=== PATIENT | male | born 1945 | race African-American/Black ===

== ENCOUNTER → 2018-08-29 | Day surgery (SDC) | payer MEDICARE ==
[2018-08-27 14:13] LABS: BASOPHILS % 0.8 % (0.0-1.0); EOSINOPHILS # (AUTO) 0.1 (0.0-0.4); EOSINOPHILS % 3.1 % (0.0-6.0); HEMATOCRIT 40.3 % (38.2-49.6); LYMPHOCYTES # (AUTO) 0.7 (1.0-3.2); MEAN CORPUSCULAR HEMOGLOBIN 28.3 pg (28-32); MEAN CORPUSCULAR HGB CONC 32.3 g/dL (31-35); MEAN CORPUSCULAR VOLUME 87.8 fL (81-99); MONOCYTES # (AUTO) 0.9 (0.2-0.8); MONOCYTES % 23.6 % (4.4-11.3); NEUTROPHILS # (AUTO) 2.1 (2.1-6.9); PLATELET COUNT 160 x10e3/uL (140-360); RED BLOOD COUNT 4.59 x10e6/uL (4.3-5.7); RED CELL DISTRIBUTION WIDTH 17.2 % (11.7-14.4)
[~2018-08-29] MED LIST: ALBUTEROL0.63 MG/3 INH; AMIODARONE HCL200 MG PO; ATORVASTATIN CA40 MG PO; CARVEDILOL3.125 MG PO; CEFAZOLIN SOD 1 GM/NS 50ML 100 ML IV ONE; FENTANYL CITRATE/PF 100MCG/2 ML INJ ONE; FUROSEMIDE40 MG PO; GABAPENTIN300 MG PO; HUMALOG100 UNIT/1 SQ; LANTUS SQ; METOCLOPRAMIDE HCL 10 MG/2ML VIAL ONE; MIDAZOLAM HCL 2 MG/2 ML VIAL ONE; PANTOPRAZOLE SO40 MG PO; POTASSIUM CHLO10 ME1 PO; PROPANTHELINE B15 MG PO; PROPOFOL IV EMULSION 10 MG/ML 50 ML VIAL ONE; SPIRONOLACTONE25 MG PO; VENTOLIN HFA18 GM INH
--- OUTSIDE RECORDS SUMMARY | 2018-08-29 09:06 | XMS REPORT | Clinical Summary ---
Author Author [facility] Organization [facility] Address Unknown Phone Unavailable Care Team Providers Care Clerical Grader Name Role Phone Agnieszka Logan MD PCP Allergies No Known Allergies Medications End Date Status Medication Sig Dispensed Refills Start Date Active amIODarone (PACERONE) 200 Take 400 mg 0 MG tablet by mouth daily. Active aspirin (ECOTRIN) 81 MG Take 81 mg by 0 enteric coated tablet mouth daily. Active atorvastatin (LIPITOR) 40 Take 40 mg by 0 MG tablet mouth daily. Active carvedilol (COREG) 12.5 Take 12.5 mg 0 MG tablet by mouth 2 (two) times a day with meals. Active furosemide (LASIX) 40 mg Take 40 mg by 0 tablet mouth 2 (two) times a day. Active gabapentin (NEURONTIN) Take 600 mg 0 600 mg tablet by mouth 3 (three) times a day. Active albuterol (ACCUNEB) 2.5 Take 2.5 mg 0 mg /3 mL (0.083 %) by nebulizer solution nebulization every 6 (six) hours as needed for wheezing. Active insulin regular, human Inject 20 0 (HUMULIN R REGULAR U-100 Units as INSULN INJ) directed 3 (three) times a day with meals. Active lisinopril Take 5 mg by 0 (PRINIVIL,ZESTRIL) 5 mg mouth daily. tablet Active magnesium hydroxide (MILK Take 30 mL by 0 OF MAGNESIA ORAL) mouth daily as needed. Active polyethylene glycol Take 17 g by 0 (MIRALAX) 17 gram packet mouth daily. Active potassium chloride Take 10 mEq 0 (K-DUR,KLOR-CON) 10 MEQ by mouth CR tablet daily. Active umeclidinium-vilanterol Inhale 1 puff 0 (ANORO ELLIPTA) 62.5-25 daily. mcg/actuation blister with device Active insulin NPH (HumuLIN-N) Inject 40 0 100 unit/mL injection Units under the skin. Sliding scale Active Problems Not on file Encounters Care Team Description Date Type Specialty Higinio Majano MD Near syncope (Primary Dx); Hypotension, unspecified hypotension type 10/01/2017 Emergency Emergency Medicine after 08/28/2017 Social History Date Tobacco Use Types Packs/Day Years Used Former Smoker Smokeless Tobacco: Never Used Alcohol Use Drinks/Week oz/Week Comments No Sex Assigned at Date Recorded Not on file Industry Job Start Date Occupation Not on file Not on file Not on file Travel End Travel History Travel Start No recent travel history available. Last Filed Vital Signs Time Taken Vital Sign Reading 10/01/2017 4:42 PM CDT Blood Pressure 158/74 10/01/2017 4:42 PM CDT Pulse 64 10/01/2017 4:42 PM CDT Temperature 36.7 C (98 F) 10/01/2017 4:42 PM CDT Respiratory Rate 21 - Oxygen Saturation - - Inhaled Oxygen - Concentration 10/01/2017 1:52 PM CDT Weight 78.9 kg (174 lb) 10/01/2017 1:52 PM CDT Height 172.7 cm (5' 8") 10/01/2017 1:52 PM CDT Body Mass Index 26.46 Plan of Treatment Health Maintenance Due Date Last Done Comments COLON CANCER SCREENING 10/27/1997 SHINGLES VACCINES (#1) 10/27/1997 65+ PNEUMOCOCCAL VACCINE 10/27/2012 (1 of 2 - PCV13) PNEUMOCOCCAL 10/27/2012 POLYSACCHARIDE VACCINE AGE 65 AND OVER INFLUENZA VACCINE 01/17/2018 Procedures Comments Procedure Name Priority Date/Time Associated Diagnosis URINALYSIS SCREEN AND Routine 10/01/2017 MICROSCOPY, WITH REFLEX 3:03 PM CDT TO CULTURE URINE CULTURE Routine 10/01/2017 3:00 PM CDT XR CHEST 1 VW PORTABLE STAT 10/01/2017 2:57 PM CDT ZZESTIMATED GFR STAT 10/01/2017 2:15 PM CDT B NATRIURETIC PEPTIDE STAT 10/01/2017 2:15 PM CDT TROPONIN STAT 10/01/2017 2:15 PM CDT CREATINE KINASE, TOTAL STAT 10/01/2017 (CPK) 2:15 PM CDT BASIC METABOLIC PANEL STAT 10/01/2017 2:15 PM CDT HC COMPLETE BLD COUNT STAT 10/01/2017 W/AUTO DIFF 2:15 PM CDT ECG 12-LEAD STAT 10/01/2017 1:58 PM CDT ECG ED PRELIMINARY Routine 10/01/2017 INTERPRETATION 1:45 PM CDT after 08/28/2017 Results * Urinalysis screen and microscopy, with reflex to culture (10/01/2017 3:03 PM CDT) Specimen site Clean catch [facility] DEPARTMENT OF PATHOLOGY AND GENOMIC MEDICINE Color, UA Yellow [facility] DEPARTMENT OF PATHOLOGY AND GENOMIC MEDICINE Appearance, UA Clear [facility] DEPARTMENT OF PATHOLOGY AND GENOMIC MEDICINE Specific gravity, UA 1.010 1.001 - 1.035 [facility] DEPARTMENT OF PATHOLOGY AND GENOMIC MEDICINE pH, UA 6.0 5.0 - 8.5 [facility] DEPARTMENT OF PATHOLOGY AND GENOMIC MEDICINE Protein, UA Negative Negative [facility] DEPARTMENT OF PATHOLOGY AND GENOMIC MEDICINE Glucose, UA 2+ (A) Negative [facility] DEPARTMENT OF PATHOLOGY AND GENOMIC MEDICINE Ketones, UA Negative Negative [facility] DEPARTMENT OF PATHOLOGY AND GENOMIC MEDICINE Bilirubin, UA Negative Negative [facility] DEPARTMENT OF PATHOLOGY AND GENOMIC MEDICINE Blood, UA Negative Negative [facility] DEPARTMENT OF PATHOLOGY AND GENOMIC MEDICINE Nitrite, UA Negative Negative [facility] DEPARTMENT OF PATHOLOGY AND GENOMIC MEDICINE Urobilinogen, UA 4.0 (A) <2.0 [facility] DEPARTMENT OF PATHOLOGY AND GENOMIC MEDICINE Leukocyte esterase, UA Negative Negative [facility] DEPARTMENT OF PATHOLOGY AND GENOMIC MEDICINE WBC, UA <1 0 - 1 /HPF [facility] DEPARTMENT OF PATHOLOGY AND GENOMIC MEDICINE RBC, UA 1 0 - 5 /HPF [facility] DEPARTMENT OF PATHOLOGY AND GENOMIC MEDICINE Bacteria, UA None seen None seen [facility] DEPARTMENT OF PATHOLOGY AND GENOMIC MEDICINE Yeast, UA None seen [facility] DEPARTMENT OF PATHOLOGY AND GENOMIC MEDICINE Yeast with pseudohyphae, None seen [facility] DEPARTMENT [facility] PATHOLOGY AND GENOMIC MEDICINE Specimen Urine Performing Organization Address City/State/Zipcode Phone Number [place] [phone] [place] [address] PATHOLOGY AND GENOMIC MEDICINE * Urine culture (10/01/2017 3:00 PM CDT) Urine culture SEE COMMENTComment: [facility] DEPARTMENT OF Bacteriuria screen negative. PATHOLOGY AND GENOMIC MEDICINE Performing Organization Address City/State/Zipcode Phone Number [facility] DEPARTMENT OF [address] [place] [address] PATHOLOGY AND GENOMIC MEDICINE * XR Chest 1 Vw Portable (10/01/2017 2:57 PM CDT) Narrative Performed At [facility]:SHORTNESS OF BREATH COMPARISON:None available IMPRESSION: The heart is mildly enlarged with left-sided dual-lead ICD, leads extending to overlie the right atrium and right ventricle. Urinary vascularity is normal and the lungs appear clear. There is no pneumothorax or effusion. Bones are intact. Minimal atherosclerosis of the aortic knob noted. Thank you for allowing us to participate in the care of your patient. [facility]-[id number] Procedure Note Hm Interface, Radiology Results Incoming - 10/01/2017 3:03 PM CDT XR CHEST 1 VW PORTABLE CLINICAL INDICATION: SHORTNESS OF BREATH COMPARISON: None available IMPRESSION: The heart is mildly enlarged with left-sided dual-lead ICD, leads extending to overlie the right atrium and right ventricle. Urinary vascularity is normal and the lungs appear clear. There is no pneumothorax or effusion. Bones are intact. Minimal atherosclerosis of the aortic knob noted. Thank you for allowing us to participate in the care of your patient. [facility]-[id number] Performing Organization Address City/[facility]/Zipcode Phone Number [facility] [address] [place] [address] * Estimated GFR (10/01/2017 2:15 PM CDT) GFR Non Af Amer 46 (A) mL/min/1.73 m2 [facility] DEPARTMENT OF PATHOLOGY AND GENOMIC MEDICINE GFR Af Amer 56 (A) mL/min/1.73 m2 [facility] DEPARTMENT OF Comment: PATHOLOGY AND Chronic kidney disease: <60 GENOMIC MEDICINE mL/min/1.73m2 Kidney failure: <15 mL/min/1.73m2 The estimated GFR is calculated from the IDMS-traceable Modification of Diet in Renal Disease Equation. The accuracy of the calculation is poor when the creatinine is normal. Calculated values >90 mL/min/1.73m2 are not reported. This equation has not been validated in children (<18 years), women, the elderly (>70 years), or ethnic groups other than Caucasians and Americans. Specimen Plasma specimen Performing Organization Address City/State/Zipcode Phone Number [place] [phone] PATHOLOGY AND [employer] MEDICINE * Troponin (10/01/2017 2:15 PM CDT) Troponin 0.21 0.00 - 0.60 ng/mL [facility] DEPARTMENT OF Comment: PATHOLOGY AND 0.11 - 1.49 GENOMIC MEDICINE ng/mlMay indicate increased risk of acute coronary syndrome. >=1.5 ng/ml Consistent with acute myocardial infarction. The diagnostic value of a single normal or non-diagnostic result is questionable.Serial samples at 2-6 hour intervals are required to rule out acute myocardial injury. Specimen Plasma specimen Performing Organization Address City/[facility] Phone Number [place] [phone] PATHOLOGY AND [employer] MEDICINE * CBC with platelet and differential (10/01/2017 2:15 PM CDT) WBC 6.6 4.2 - 11.0 k/uL [facility] DEPARTMENT OF PATHOLOGY AND GENOMIC MEDICINE RBC 3.84 (L) 4.04 - 5.86 m/uL [facility] DEPARTMENT OF PATHOLOGY AND GENOMIC MEDICINE HGB 10.5 (L) 13.0 - 17.3 g/dL [facility] DEPARTMENT PATHOLOGY AND GENOMIC MEDICINE HCT 32.7 (L) 34.0 - 45.0 % [facility] DEPARTMENT OF PATHOLOGY AND GENOMIC MEDICINE MCV 85.2 80.0 - 98.0 fL [facility] DEPARTMENT OF PATHOLOGY AND GENOMIC MEDICINE MCH 27.3 27.0 - 34.0 pg [facility] DEPARTMENT OF PATHOLOGY AND GENOMIC MEDICINE MCHC 32.1 31.5 - 36.5 g/dL [facility] DEPARTMENT OF PATHOLOGY AND GENOMIC MEDICINE RDW - SD 55.6 (H) 37.0 - 51.0 fL [facility] DEPARTMENT OF PATHOLOGY AND GENOMIC MEDICINE MPV 12.0 (H) 7.4 - 10.4 fL [facility] DEPARTMENT OF PATHOLOGY AND GENOMIC MEDICINE Platelet count 205 150 - 400 k/uL [facility] DEPARTMENT OF PATHOLOGY AND GENOMIC MEDICINE Nucleated RBC 0.00 /100 WBC [facility] DEPARTMENT OF PATHOLOGY AND GENOMIC MEDICINE Neutrophils 78.6 (H) 36.0 - 66.0 % [facility] DEPARTMENT OF PATHOLOGY AND GENOMIC MEDICINE Lymphocytes 8.2 (L) 24.0 - 44.0 % [facility] DEPARTMENT OF PATHOLOGY AND GENOMIC MEDICINE Monocytes 11.0 (H) 0.0 - 6.0 % [facility] DEPARTMENT OF PATHOLOGY AND GENOMIC MEDICINE Eosinophils 1.4 0.0 - 6.0 % [facility] DEPARTMENT OF PATHOLOGY AND GENOMIC MEDICINE Basophils 0.3 0.0 - 1.2 % [facility] DEPARTMENT OF PATHOLOGY AND GENOMIC MEDICINE Immature granulocytes 0.5 0.0 - 1.0 % [facility] DEPARTMENT OF PATHOLOGY AND GENOMIC MEDICINE Specimen Blood Performing Organization Address City/[facility] Medical [place] [address] PATHOLOGY AND GENOMIC MEDICINE * B natriuretic peptide (10/01/2017 2:15 PM CDT) BNP 798 (H) 0 - 100 pg/mL [facility] DEPARTMENT OF PATHOLOGY AND GENOMIC MEDICINE Specimen Blood Performing Organization Address City/[facility] [place] [address] PATHOLOGY AND GENOMIC MEDICINE * Creatine kinase, total (CPK) (10/01/2017 2:15 PM CDT) Creatine kinase 53 (L) 61 - 224 U/L [facility] DEPARTMENT OF PATHOLOGY AND GENOMIC MEDICINE Specimen Plasma specimen Performing Organization Address City/[facility] [place] [address] PATHOLOGY AND GENOMIC [facility] * Basic metabolic panel (10/01/2017 2:15 PM CDT) Sodium 139 135 - 150 mEq/L [facility] DEPARTMENT OF PATHOLOGY AND GENOMIC MEDICINE Potassium 4.4 3.5 - 5.0 mEq/L [facility] DEPARTMENT OF PATHOLOGY AND GENOMIC MEDICINE Chloride 100 100 - 109 mEq/L [facility] DEPARTMENT OF PATHOLOGY AND GENOMIC MEDICINE CO2 33 (H) 24 - 32 mmol/L [facility] DEPARTMENT OF PATHOLOGY AND GENOMIC MEDICINE Anion gap 6 (L) 7 - 15 mEq/L [facility] DEPARTMENT OF Comment: PATHOLOGY AND Starting from [facility] , anion gap calculation no longer incorporates potassium. Please note the change. BUN 41 (H) 7 - 18 mg/dL [facility] DEPARTMENT OF PATHOLOGY AND GENOMIC MEDICINE Creatinine 1.5 0.8 - 1.5 mg/dL [facility] DEPARTMENT OF PATHOLOGY AND GENOMIC MEDICINE Glucose 205 (H) 65 - 100 mg/dL [facility] DEPARTMENT OF PATHOLOGY AND GENOMIC MEDICINE Calcium 9.2 8.6 - 10.7 mg/dL [facility] DEPARTMENT OF PATHOLOGY AND GENOMIC MEDICINE Specimen Plasma specimen Performing Organization Address City/[facility] Centercoor Phone Number [facility] DEPARTMENT OF [address] [place] [address] PATHOLOGY AND GENOMIC MEDICINE * ECG 12 lead (10/01/2017 1:58 PM CDT) Ventricular rate 66 [facility] Atrial rate 66 [facility] TX interval 200 [facility] QRSD interval 104 [facility] QT interval 464 [facility] QTC interval 486 [facility] P axis 1 13 [facility] QRS axis 1 62 [facility] T wave axis 6 [facility] EKG impression Normal sinus rhythm-ST & T [facility] wave abnormality, consider lateral ischemia-Prolonged QT-Abnormal ECG-No previous ECGs available- Performing Organization Address [facility] Centerc[facility] Phone Number [facility] [address] [place] [address] * ECG ED Preliminary Interpretation - NOT AN ORDER (10/01/2017 1:45 PM CDT) Narrative Performed At Higinio Majano MD 10/01/20174:41 PM ECG ED Preliminary Interpretation - Not an Order Performed by: HIGINIO MAJANO Authorized by: HIGINIO MAJANO ECG reviewed by ED Physician in the absence of a relationship executive: yes Interpretation: Interpretation: abnormal Rate: ECG rate:66 ECG rate assessment: normal Rhythm: Rhythm: sinus rhythm Ectopy: Ectopy: none QRS: QRS axis:Normal QRS intervals:Normal Conduction: Conduction: normal ST segments: ST segments:Normal T waves: T waves: flattening and inverted Flattening:II, III and aVF Inverted:V5 and V6 after 08/28/2017 Insurance Payer Benefit Subscriber ID Type Phone Address Plan / Group MEDICARE MEDICARE xxxxxxxxxx Medicare [place], [place] PART A AND B [employer] MEDICARE HU[employer]NA xxxxxxxxx PPO MEDICARE PPO/PFFS/E [facility] Advance Directives Patient has advance care planning documents on file. For more information, ethan logan contact: Rigo Sims [address] [place] [address]
--- OUTSIDE RECORDS SUMMARY | 2018-08-29 09:07 | XMS REPORT | Summary of Care ---
Author Author [facility] Organization [facility] Address Unknown Phone Unavailable Encounter BERENICE Kilgore(KENYON) [id number] Date(s): 08/07/17 - 08/10/17 [facility] [address] [place] [address]- [phone] Encounter Diagnosis Breakdown (mechanical) of cardiac pulse generator (battery), initial encounter (Final) - 08/23/17 Ventricular tachycardia (Final) - Acute kidney failure, unspecified (Final) - Hypertensive heart and chronic kidney disease with heart failure and stage 1 thr ough stage 4 chronic kidney disease, or unspecified chronic kidney disease (Final) - Chronic systolic (congestive) heart failure (Final) - Dilated cardiomyopathy (Final) - Type 2 diabetes mellitus with diabetic chronic kidney disease (Final) - Chronic kidney disease, stage 3 (moderate) (Final) - Obesity, unspecified (Final) - Hypothyroidism, unspecified (Final) - Personal history of nicotine dependence (Final) - nursing home (current) use of insulin (Final) - Body mass index (BMI) 32.0-32.9, adult (Final) - Presence of automatic (implantable) cardiac defibrillator (Final) - Discharge Disposition: Home Care with Home Health Attending Physician: Kalen Galarza MD Admitting Physician: Kalen Galarza MD Vital Signs 1 2 3 Most recent to oldest [Reference Range]: 172.72 cm (08/07/17 3:24 PM) 165.1 cm (08/07/17 11:44 AM) Height 84.744 kg (08/10/17 5:23 AM) 84.591 kg (08/09/17 5:11 AM) 86 kg (08/08/17 4:28 AM) Current Weight 98.1 DegF (08/10/17 6:10 PM) 98.5 DegF (08/10/17 12:30 PM) 98.3 DegF (08/10/17 7:30 AM) Temperature Oral [96.4-99.1 DegF] 128/70 mmHg (08/10/17 6:10 PM) 135/71 mmHg (08/10/17 12:30 PM) 125/64 mmHg (08/10/17 7:30 AM) Blood Pressure [90-140/60-90 mmHg] 18 BRMIN (08/10/17 6:10 PM) 18 BRMIN (08/10/17 12:30 PM) 18 BRMIN (08/10/17 7:30 AM) Respiratory Rate [14-20 BRMIN] 84 bpm (08/10/17 6:10 PM) 77 bpm (08/10/17 12:30 PM) 80 bpm (08/10/17 7:30 AM) Peripheral Pulse Rate [60-100 bpm] 85 kg (08/07/17 3:24 PM) 89.091 kg (08/07/17 11:44 AM) Weight 28.49 m2 (08/07/17 3:24 PM) 32.68 m2 (08/07/17 11:44 AM) Body Mass Index Problem List Condition Effective Dates Status Health Status Informant Cardiomyopathy(Confi Active rmed) COPD (chronic Active obstructive pulmonary disease)(Confirmed) CHF (congestive Active heart failure)(Confirmed) DM (diabetes Active mellitus)(Confirmed) HTN Active (hypertension)(Confi rmed) Renal Active insufficiency(Confir med) Allergies, Adverse Reactions, Alerts Substance Reaction Severity Status NKDA Active Medications acetaminophen 650 mg, 2 tab, Route: PO, Drug form: TAB, Q4H, Dosing Weight 89.091, kg, PRN Luisa n 1-3/Temp > 100.4 F, Start date: 08/07/17 13:58:00 [employer], Duration: 30 day, Stop date: 09/06/17 13:57:00 CDT Notes: Do not exceed 4 gm/day. (Same as: Tylenol) Start Date: 08/07/17 Stop Date: 08/09/17 Status: Discontinued acetaminophen 325 mg, 1 tab, Route: PO, Drug form: TAB, Q4H, Dosing Weight 85, kg, PRN Pain 1- 3/Temp > 100.4 F, Start date: 08/09/17 10:44:00 [employer], Duration: 30 day, Stop date: 09/08/17 10:43:00 CDT Notes: Do not exceed 4 gm/day. (Same as: Tylenol) Start Date: 08/09/17 Stop Date: 08/10/17 Status: Discontinued acetaminophen-codeine #3 1 tab, Route: PO, Drug Form: TAB, Dosing Weight 85, kg, Q4H, PRN Pain Score 4-6, Start date: 08/09/17 10:44:00 [employer], Duration: 30 day, Stop date: 09/08/17 10:43: 00 CDT Notes: Do not exceed 4gm/day of acetaminophen. (Same as: Tylenol with Codeine # 3) Start Date: 08/09/17 Stop Date: 08/10/17 Status: Discontinued AMIODarone 400 mg, Route: PO, Drug form: TAB, Daily, Dosing Weight 89.091, kg, Start date: 08/08/17 9:00:00 [employer], Duration: 30 day, Stop date: 09/06/17 9:00:00 CDT Start Date: 08/08/17 Stop Date: 08/07/17 Status: Canceled AMIODarone 400 mg oral tablet 400 mg=1 tab, PO, BID, # 180 tab, 0 Refill(s) Start Date: 08/07/17 Status: Ordered AMIODarone 900 mg in D5W 500 ml IV 900 mg 900 mg, 500 mL, Rate: 1 mg/min for 6 hours, then reduce to 0.5 mg/min, Dosing We ight 89.091, kg, Route: IV, Total Volume: 500, Start Date: 08/07/17 12:28:00 [employer] , Duration: 30 day, Stop date: 09/06/17 12:27:00 CDT, Replace Every: 12 hr Notes: Same as: CordaroneUse 0.22 micron in-line filterConcentration: 1.8 mg/ ml Initiate at 33.4mL/hr x6hr, then 16.7mL/hr x18hr. Infusion may be maintained up to 96hr OR until a stable rhythm is reached OR until discontinued by MD. Start Date: 08/07/17 Stop Date: 08/09/17 Status: Discontinued aspirin 81 mg, PO, Daily, 0 Refill(s) Start Date: 08/07/17 Status: Ordered aspirin 324 mg, 4 tab, Route: CHEW, Drug form: CHEWTAB, ONCE, Dosing Weight 89.091, kg, Priority: STAT, Start date: 08/07/17 12:50:00 [employer], Stop date: 08/07/17 12:50:00 [employer] Notes: Take with food. Start Date: 08/07/17 Stop Date: 08/07/17 Status: Completed Aspirin Enteric Coated 81 mg, 1 tab, Route: PO, Drug form: ECTAB, Daily, Dosing Weight 89.091, kg, Star t date: 08/07/17 17:00:00 [employer], Duration: 30 day, Stop date: 09/06/17 9:00:00 CDT Notes: Do not crush or chew.(Same As: Ecotrin) Start Date: 08/07/17 Stop Date: 08/10/17 Status: Discontinued atorvastatin 40 mg, PO, Daily, 0 Refill(s) Start Date: 08/07/17 Status: Ordered atorvastatin 40 mg, 1 tab, Route: PO, Drug form: TAB, Bedtime, Dosing Weight 89.091, kg, Star t date: 08/07/17 21:00:00 [employer], Duration: 30 day, Stop date: 09/05/17 21:00:00 CD T Notes: (Same as: Lipitor) Start Date: 08/07/17 Stop Date: 08/10/17 Status: Discontinued bisacodyl 10 mg, 1 supp, Route: MO, Drug form: SUPP, Daily, Dosing Weight 89.091, kg, PRN Constipation, Start date: 08/07/17 14:04:00 [employer], Duration: 30 day, Stop date: 14:03:00 CDT Notes: (Same As: Dulcolax, Bisco-Lax) Start Date: 08/07/17 Stop Date: 08/10/17 Status: Discontinued carvedilol 25 mg oral tablet 25 mg=1 tab, PO, BID, # 180 tab, 0 Refill(s) Start Date: 08/07/17 Status: Ordered ceFAZolin + sterile water 10 mL 1 gm, Route: IVP, Q8H, Dosing Weight 85, kg, Start date: 08/09/17 16:00:00 [employer], Duration: 1 doses or times, Stop date: 08/09/17 16:00:00 [employer], ABX Indication: Galo rgical Prophylaxis Notes: (Same As: Jaylan Benites) MEDICATION WASTE Product Size: 1000 mgP roduct Wasted: ___ mg Start Date: 08/09/17 Stop Date: 08/09/17 Status: Completed Coreg 25 mg, 1 tab, Route: PO, Drug form: TAB, Q12H, Dosing Weight 89.091, kg, Start d ate: 08/07/17 21:00:00 [employer], Duration: 30 day, Stop date: 09/06/17 9:00:00 CDT Notes: Give with food. (Same As: Coreg) Start Date: 08/07/17 Stop Date: 08/10/17 Status: Discontinued dextromethorphan-guaiFENesin 10 mg-100 mg/5 mL oral liquid 10 mL, Route: PO, Drug Form: LIQ, Dosing Weight 89.091, kg, Q4H, PRN Cough, Star t date: 08/07/17 14:04:00 [employer], Duration: 30 day, Stop date: 09/06/17 14:03:00 CD T Notes: (dextromethorphan-guaifenesin 10-100/5 ml LIQ) (Same as: Madhuitussin-DM) Start Date: 08/07/17 Stop Date: 08/10/17 Status: Discontinued Dextrose 50% Syringe 25 gm, 50 mL, Route: IVP, Drug Form: INJ, Dosing Weight 89.091, kg, PRN, PRN Blo od Glucose Results, Start date: 08/07/17 14:02:00 [employer], Duration: 30 day, Stop da te: 09/06/17 15:01:00 CDT Start Date: 08/07/17 Stop Date: 08/10/17 Status: Discontinued Dextrose 50% Syringe 12.5 gm, 25 mL, Route: IVP, Drug Form: INJ, Dosing Weight 89.091, kg, PRN, PRN B lood Glucose Results, Start date: 08/07/17 14:02:00 [employer], Duration: 30 day, Stop date: 09/06/17 15:01:00 CDT Start Date: 08/07/17 Stop Date: 08/10/17 Status: Discontinued diphenhydrAMINE 25 mg, 1 tab, Route: PO, Drug form: TAB, Q6H, Dosing Weight 89.091, kg, PRN Itch ing, Start date: 08/07/17 14:04:00 [employer], Duration: 30 day, Stop date: 09/06/17 14 :03:00 CDT Start Date: 08/07/17 Stop Date: 08/10/17 Status: Discontinued docusate-senna 50 mg-8.6 mg oral tablet 1 tab, Route: PO, Drug Form: TAB, Dosing Weight 85, kg, BID, hold for lose BMs, Start date: 08/09/17 21:00:00 [employer], Duration: 30 day, Stop date: 09/08/17 17:00:0 0 CDT Notes: (Same as Senokot-S) Equiv. to Deidra-Colace. Start Date: 08/09/17 Stop Date: 08/10/17 Status: Discontinued Fleet Mineral Oil Enema 133 mL, Route: MO, Drug Form: MONTRELL, Dosing Weight 89.091, kg, ONCE, PRN Constipa tion, Start date: 08/07/17 14:04:00 [employer] Notes: (Same as:Fleet Mineral Oil Enema) Start Date: 08/07/17 Stop Date: 08/09/17 Status: Discontinued gabapentin 600 mg oral tablet 300 mg, 1 cap, Route: PO, Drug form: CAP, TID, Dosing Weight 89.091, kg, Start d ate: 08/07/17 16:00:00 [employer], Duration: 30 day, Stop date: 09/06/17 15:00:00 CDT Notes: (Same as: Neurontin) Start Date: 08/07/17 Stop Date: 08/10/17 Status: Discontinued gabapentin 600 mg oral tablet 600 mg=1 tab, PO, TID, # 270 tab, 0 Refill(s) Start Date: 08/07/17 Status: Ordered glucagon 1 mg, Route: IM, Drug form: PDR/INJ, PRN, Dosing Weight 89.091, kg, PRN Blood Gl ucose Results, Start date: 08/07/17 14:02:00 [employer], Duration: 30 day, Stop date: 0 09/06/17 15:01:00 CDT Start Date: 08/07/17 Stop Date: 08/10/17 Status: Discontinued hydrALAZINE 10 mg, 0.5 mL, Route: IVP, Drug form: INJ, Q4H, Dosing Weight 89.091, kg, PRN Ot her -See Comment, Start date: 08/07/17 14:04:00 [employer], Duration: 30 day, Stop date : 09/06/17 14:03:00 CDT Notes: (Same as: Apresoline)Push over 5 minutes Start Date: 08/07/17 Stop Date: 08/10/17 Status: Discontinued insulin isophane-NPH 35 unit, SUB-Q, QPM, 0 Refill(s) Start Date: 08/07/17 Status: Ordered insulin isophane-NPH 20 unit, SUB-Q, QAM, 0 Refill(s) Start Date: 08/07/17 Status: Ordered insulin lispro 10 unit, 0.1 mL, Route: SUB-Q, Drug form: SOLN, TID-Before Meals, Dosing Weight 89.091, kg, Start date: 08/07/17 16:30:00 [employer], Duration: 30 day, Stop date: 08/18 07/06 11:30:00 CDT Notes: (Same as: Humalog ) Roll in palms of hands gently; Do not shake `vigorou sly. "Single Patient Use Only " WASTE: F/P - Black; E - [facility] [address] able for 28 days at room temperature.Expires in days from Da te Start Date: 08/07/17 Stop Date: 08/10/17 Status: Discontinued insulin lispro 1 unit, 0.01 mL, Route: SUB-Q, Drug form: SOLN, Bedtime, Dosing Weight 89.091, k g, PRN Blood Glucose Results, Start date: 08/07/17 14:02:00 [employer], Duration: 30 da y, Stop date: 09/06/17 14:01:00 CDT Notes: (Same as: Humalog ) Roll in palms of hands gently; Do not shake `vigorou sly. "Single Patient Use Only " WASTE: F/P - Black; E - [facility] [address] able for 28 days at room temperature.Expires in days from Da te Start Date: 08/07/17 Stop Date: 08/10/17 Status: Discontinued insulin lispro 3 unit, 0.03 mL, Route: SUB-Q, Drug form: SOLN, Bedtime, Dosing Weight 89.091, k g, PRN Blood Glucose Results, Start date: 08/07/17 14:02:00 [employer], Duration: 30 da y, Stop date: 09/06/17 14:01:00 CDT Notes: (Same as: Humalog ) Roll in palms of hands gently; Do not shake `vigorou sly. "Single Patient Use Only " WASTE: F/P - Black; E - [facility] [address] able for 28 days at room temperature.Expires in days from Da te Start Date: 08/07/17 Stop Date: 08/10/17 Status: Discontinued insulin lispro 2 unit, 0.02 mL, Route: SUB-Q, Drug form: SOLN, Bedtime, Dosing Weight 89.091, k g, PRN Blood Glucose Results, Start date: 08/07/17 14:02:00 [employer], Duration: 30 da y, Stop date: 09/06/17 14:01:00 CDT Notes: (Same as: Humalog ) Roll in palms of hands gently; Do not shake `vigorou sly. "Single Patient Use Only " WASTE: F/P - Black; E - [facility] [address] able for 28 days at room temperature.Expires in days from Da te Start Date: 08/07/17 Stop Date: 08/10/17 Status: Discontinued insulin lispro 4 unit, 0.04 mL, Route: SUB-Q, Drug form: SOLN, Bedtime, Dosing Weight 89.091, k g, PRN Blood Glucose Results, Start date: 08/07/17 14:02:00 [employer], Duration: 30 da y, Stop date: 09/06/17 14:01:00 CDT Notes: (Same as: Humalog ) Roll in palms of hands gently; Do not shake `vigorou sly. "Single Patient Use Only " WASTE: F/P - Black; E - [facility] [address] able for 28 days at room temperature.Expires in days from Da te Start Date: 08/07/17 Stop Date: 08/10/17 Status: Discontinued insulin lispro 15 unit, 0.15 mL, Route: SUB-Q, Drug form: SOLN, TID-Before Meals, Dosing Weight 89.091, kg, PRN Blood Glucose Results, Start date: 08/07/17 14:02:00 [employer], Durat ion: 30 day, Stop date: 09/06/17 14:01:00 CDT Notes: (Same as: Humalog ) Roll in palms of hands gently; Do not shake `vigorou sly. "Single Patient Use Only " WASTE: F/P - Black; E - [facility] [address] able for 28 days at room temperature.Expires in days from Da te Start Date: 08/07/17 Stop Date: 08/10/17 Status: Discontinued insulin lispro 12 unit, 0.12 mL, Route: SUB-Q, Drug form: SOLN, TID-Before Meals, Dosing Weight 89.091, kg, PRN Blood Glucose Results, Start date: 08/07/17 14:02:00 [employer], Durat ion: 30 day, Stop date: 09/06/17 14:01:00 CDT Notes: (Same as: Humalog ) Roll in palms of hands gently; Do not shake `vigorou sly. "Single Patient Use Only " WASTE: F/P - Black; E - [facility] [address] able for 28 days at room temperature.Expires in days from Da te Start Date: 08/07/17 Stop Date: 08/10/17 Status: Discontinued insulin lispro 9 unit, 0.09 mL, Route: SUB-Q, Drug form: SOLN, TID-Before Meals, Dosing Weight 89.091, kg, PRN Blood Glucose Results, Start date: 08/07/17 14:02:00 [employer] TE[employer]ER, Durati on: 30 day, Stop date: 09/06/17 14:01:00 CDT Notes: (Same as: Humalog ) Roll in palms of hands gently; Do not shake `vigorou sly. "Single Patient Use Only " WASTE: F/P - Black; E - [facility] [address] able for 28 days at room temperature.Expires in days from Da te Start Date: 08/07/17 Stop Date: 08/10/17 Status: Discontinued insulin lispro 6 unit, 0.06 mL, Route: SUB-Q, Drug form: SOLN, TID-Before Meals, Dosing Weight 89.091, kg, PRN Blood Glucose Results, Start date: 08/07/17 14:02:00 [employer] TE[employer], Durati on: 30 day, Stop date: 09/06/17 14:01:00 CDT Notes: (Same as: Humalog ) Roll in palms of hands gently; Do not shake `vigorou sly. "Single Patient Use Only " WASTE: F/P - Black; E - [facility] [address] able for 28 days at room temperature.Expires in days from Da te Start Date: 08/07/17 Stop Date: 08/10/17 Status: Discontinued insulin lispro 3 unit, 0.03 mL, Route: SUB-Q, Drug form: SOLN, TID-Before Meals, Dosing Weight 89.091, kg, PRN Blood Glucose Results, Start date: 08/07/17 14:02:00 [employer] TE[employer]ER, Durati on: 30 day, Stop date: 09/06/17 14:01:00 CDT Notes: (Same as: Humalog ) Roll in palms of hands gently; Do not shake `vigorou sly. "Single Patient Use Only " WASTE: F/P - Black; E - [facility] [address] able for 28 days at room temperature.Expires in days from Da te Start Date: 08/07/17 Stop Date: 08/10/17 Status: Discontinued Insulin regular 20 unit, SUB-Q, TID-Before Meals, 0 Refill(s) Start Date: 08/07/17 Stop Date: 08/10/17 Status: Discontinued lactulose 10 g/15 mL oral syrup 10 gm, 15 ml, Route: PO, Drug form: SYRP, BID, Dosing Weight 89.091, kg, PRN Con stipation, Start date: 08/07/17 14:04:00 [employer], Duration: 30 day, Stop date: 09/06 14:03:00 CDT Notes: (Same as:Chronulac) Start Date: 08/07/17 Stop Date: 08/10/17 Status: Discontinued Lasix 40 mg, 1 tab, Route: PO, Drug form: TAB, BID Diuretic, Dosing Weight 89.091, kg, Start date: 08/07/17 16:00:00 [employer], Duration: 30 day, Stop date: 09/06/17 8:00:00 CDT Notes: (Same as: Lasix) May cause GI upset. Give with food or milk. Start Date: 08/07/17 Stop Date: 08/09/17 Status: Discontinued Lasix 40 mg oral tablet 40 mg=1 tab, PO, Daily, # 30 tab, 0 Refill(s) Start Date: 08/07/17 Stop Date: 08/10/17 Status: Discontinued lisinopril 20 mg, 1 tab, Route: PO, Drug form: TAB, Daily, Dosing Weight 89.091, kg, Start date: 08/07/17 17:00:00 [employer], Duration: 30 day, Stop date: 09/06/17 9:00:00 CDT Notes: (Same as: Prinivil, Zestril) Start Date: 08/07/17 Stop Date: 08/09/17 Status: Discontinued lisinopril 20 mg oral tablet 20 mg=1 tab, PO, Daily, # 30 tab, 0 Refill(s) Start Date: 08/07/17 Stop Date: 08/10/17 Status: Discontinued melatonin 3 mg, 1 tab, Route: PO, Drug form: TAB, Bedtime, Dosing Weight 89.091, kg, PRN S leep, Start date: 08/07/17 14:04:00 [employer], Duration: 30 day, Stop date: 09/06/17 1 4:03:00 CDT Notes: (Same as: Melatonin) Start Date: 08/07/17 Stop Date: 08/10/17 Status: Discontinued metoprolol 5 mg/5 ml INJ 5 mg, 5 mL, Route: IVP, Drug form: INJ, Q4H, Dosing Weight 89.091, kg, PRN Other -See Comment, Start date: 08/07/17 14:04:00 [employer], Duration: 30 day, Stop date: 0 09/06/17 14:03:00 CDT Notes: (Same as: Lopressor)Push over 2 minutes Start Date: 08/07/17 Stop Date: 08/10/17 Status: Discontinued MiraLax 34 gm, 2 pkt, Route: PO, Drug form: PWDR, Daily, Dosing Weight 85, kg, Start ayan e: 08/10/17 17:00:00 [employer] TE[employer]ER, Duration: 30 day, Stop date: 09/09/17 9:00:00 CDT Notes: Dissolve in 8 oz of water or juice.(Same as: Miralax) Start Date: 08/10/17 Stop Date: 08/10/17 Status: Discontinued MiraLax oral powder for reconstitution 17 gm, PO, Daily, PRN Constipation, X 31 day, # 527 gm, 0 Refill(s), Pharmacy: [facility] [id number] Start Date: 08/10/17 Stop Date: 09/10/17 Status: Completed morphine Sulfate 2 mg, 0.5 mL, Route: IVP, Drug form: INJ, Q4H, Dosing Weight 89.091, kg, PRN Luisa n Score 7-10, Start date: 08/07/17 14:04:00 [employer]ER, Duration: 30 day, Stop date: 14:03:00 CDT Notes: (Same as:MORPhine Sulfate) Start Date: 08/07/17 Stop Date: 08/09/17 Status: Discontinued morphine Sulfate 2 mg, Route: IVP, Q4H, Dosing Weight 89.091, kg, PRN Pain Score 7-10, Start date : 08/07/17 13:58:00 [employer] TE[employer], Duration: 30 day, Stop date: 09/06/17 13:57:00 CDT Start Date: 08/07/17 Stop Date: 08/07/17 Status: Deleted morphine Sulfate 2 mg, 0.5 mL, Route: IVP, Drug form: SOLN, Q4H, Dosing Weight 85, kg, PRN Pain S core 7-10, Start date: 08/09/17 10:44:00 [employer] TE[employer], Duration: 30 day, Stop date: 09/08 10:43:00 CDT Notes: (Same as:MORPhine Sulfate) Start Date: 08/09/17 Stop Date: 08/10/17 Status: Discontinued NovoLIN N 36 unit, 0.36 mL, Route: SUB-Q, Drug form: INJ, Before Dinner, Dosing Weight 89. 091, kg, Start date: 08/07/17 16:30:00 [employer] TE[employer]ER, Duration: 30 day, Stop date: 8 16:30:00 CDT Notes: Roll in palms of hands gently; Do not shake vigorously. (Same as: Fito n N)Do not hold insulin without contacting prescriberWASTE: F/P - Black; E - [place] [facility] Trash Bin Stable for 28 days at room temperatureExpires in days f rom Date Start Date: 08/07/17 Stop Date: 08/10/17 Status: Discontinued NovoLIN N 20 unit, 0.2 mL, Route: SUB-Q, Drug form: INJ, Before Breakfast, Dosing Weight 8 9.091, kg, Start date: 08/08/17 7:30:00 [employer] H[employer]ORY TE[employer]ER, Duration: 30 day, Stop date: 7:30:00 CDT Notes: Roll in palms of hands gently; Do not shake vigorously. (Same as: Humuli n N)Do not hold insulin without contacting prescriberWASTE: F/P - Black; E - [place] [facility] Trash Bin Stable for 28 days at room temperatureExpires in days f rom Date Start Date: 08/08/17 Stop Date: 08/10/17 Status: Discontinued senna 8.6 mg, 1 tab, Route: PO, Drug Form: TAB, Dosing Weight 89.091, kg, Daily, PRN C onstipation, Start date: 08/07/17 14:04:00 [employer] H[employer]ORY TE[employer]ER, Duration: 30 day, Stop date: 14:03:00 CDT Notes: (Same as: Mario) Start Date: 08/07/17 Stop Date: 08/10/17 Status: Discontinued simethicone 80 mg, 1 tab, Route: PO, Drug form: CHEWTAB, Q6H, Dosing Weight 89.091, kg, PRN Gas, Start date: 08/07/17 14:04:00 [employer] H[employer] TE[employer]ER, Duration: 2 doses or times, Stop date: L imited # of times Notes: (Same as: Martha) Start Date: 08/07/17 Stop Date: 08/10/17 Status: Discontinued Sodium Chloride 0.9% IV 250 mL 250 mL, Rate: 75 ml/hr, Infuse over: 3.3 hr, Route: IV, Dosing Weight 85 kg, Tot al Volume: 250, Start date: 08/09/17 10:44:00 [employer] TE[employer]ER, Duration: 10 hr, Stop date: 0 08/09/17 20:43:00 [employer]UR[employer] HISTORY TE[employer]ER, 2.04, m2 Start Date: 08/09/17 Stop Date: 08/09/17 Status: Completed Sodium Chloride 0.9% IV 500 mL 500 mL, Rate: 20 ml/hr, Infuse over: 25 hr, Route: IV, Dosing Weight 85 kg, Tota l Volume: 500, Start date: 08/09/17 0:01:00 [employer] H[employer] TE[employer]ER, Duration: 24 hr, Stop date: 0:00:00 [employer]UR[employer] HISTORY TE[employer]ER, 2.04, m2 Start Date: 08/09/17 Stop Date: 08/10/17 Status: Completed trazodone 25 mg, 0.5 tab, Route: PO, Drug form: TAB, Bedtime, Dosing Weight 89.091, kg, MO N Sleep, Start date: 08/07/17 14:04:00 [employer]URCH HISTORY TE[employer]ER, Duration: 30 day, Stop date: 8 14:03:00 CDT Notes: (Same As: Rosemary) Start Date: 08/07/17 Stop Date: 08/10/17 Status: Discontinued Zofran ODT 4 mg oral tablet, disintegrating 4 mg=1 tab, PO, TID, PRN as needed for nausea/vomiting, Dissolve tab under koffi logan, # 30 tab, 0 Refill(s), Pharmacy: [facility] [id number] Start Date: 08/10/17 Stop Date: 09/05/17 Status: Discontinued Results ELECTROLYTES 1 2 3 Most recent to oldest [Reference Range]: 137 mEq/L (08/10/17 4:48 AM) 137 mEq/L (08/09/17 4:05 AM) 138 mEq/L (08/08/17 3:14 AM) Sodium Lvl [135-145 mEq/L] 3.9 mEq/L (08/10/17 4:48 AM) 4.4 mEq/L (08/09/17 4:05 AM) 4.0 mEq/L (08/08/17 3:14 AM) Potassium Lvl [3.5-5.1 mEq/L] 101 mEq/L (08/10/17 4:48 AM) 102 mEq/L (08/09/17 4:05 AM) 101 mEq/L (08/08/17 3:14 AM) Chloride Lvl [95-109 mEq/L] 28 mEq/L (08/10/17 4:48 AM) 28 mEq/L (08/09/17 4:05 AM) 30 mEq/L (08/08/17 3:14 AM) CO2 [24-32 mEq/L] 11.9 mEq/L (08/10/17 4:48 AM) 11.4 mEq/L (08/09/17 4:05 AM) 11.0 mEq/L (08/08/17 3:14 AM) AGAP [10.0-20.0 mEq/L] CHEM PANEL 1 2 3 Most recent to oldest [Reference Range]: 1.84 mg/dL *HI* (08/10/17 4:48 AM) 1.95 mg/dL *HI* (08/09/17 4:05 AM) 2.09 mg/dL *HI* (08/08/17 3:14 AM) Creatinine Lvl [0.50-1.40 mg/dL] 42 mL/min/1.73m2 1 *NA* (08/10/17 4:48 AM) 39 mL/min/1.73m2 2 *NA* (08/09/17 4:05 AM) 36 mL/min/1.73m2 3 *NA* (08/08/17 3:14 AM) eGFR 42 mg/dL *HI* (08/10/17 4:48 AM) 40 mg/dL *HI* (08/09/17 4:05 AM) 44 mg/dL *HI* (08/08/17 3:14 AM) BUN [7-22 mg/dL] 21 (08/08/17 3:14 AM) 24 (08/07/17 12:13 PM) B/C Ratio [6-25] 148 mg/dL *HI* (08/10/17 4:48 AM) 132 mg/dL *HI* (08/09/17 4:05 AM) 161 mg/dL *HI* (08/08/17 3:14 AM) Glucose Lvl [70-99 mg/dL] 6.4 g/dL (08/08/17 3:14 AM) 6.9 g/dL (08/07/17 12:13 PM) Total Protein [6.4-8.4 g/dL] 2.8 g/dL *LOW* (08/08/17 3:14 AM) 3.2 g/dL *LOW* (08/07/17 12:13 PM) Albumin Lvl [3.5-5.0 g/dL] 3.6 g/dL (08/08/17 3:14 AM) 3.7 g/dL (08/07/17 12:13 PM) Globulin [2.7-4.2 g/dL] 0.8 (08/08/17 3:14 AM) 0.9 (08/07/17 12:13 PM) A/G Ratio [0.7-1.6] 9.1 mg/dL (08/10/17 4:48 AM) 8.5 mg/dL (08/09/17 4:05 AM) 8.7 mg/dL (08/08/17 3:14 AM) Calcium Lvl [8.5-10.5 mg/dL] 2.4 mg/dL *LOW* (08/07/17 12:13 PM) Phosphorus [2.5-4.5 mg/dL] 2.7 mg/dL *HI* (08/07/17 12:13 PM) Magnesium Lvl [1.8-2.4 mg/dL] 291 unit/L *HI* (08/08/17 3:14 AM) 295 unit/L *HI* (08/07/17 12:13 PM) ALT [0-65 unit/L] 134 unit/L *HI* (08/08/17 3:14 AM) 155 unit/L *HI* (08/07/17 12:13 PM) AST [0-37 unit/L] 41 unit/L (08/08/17 3:14 AM) 41 unit/L (08/07/17 12:13 PM) Alk Phos [39-136 unit/L] 0.5 mg/dL (08/08/17 3:14 AM) 0.6 mg/dL (08/07/17 12:13 PM) Bili Total [0.2-1.3 mg/dL] 1Result Comment: The eGFR is calculated using the CKD-EPI formula. In most young, healthy individuals the eGFR will be >90 mL/min/1.73m2. The eGFR declines with age. An eGFR of 60-89 may be normal in some populations, particularly the elderly, for whom the CKD-EPI formula has not been extensively validated. Use of the eGFR is not recommended in the following populations: Individuals with unstable creatinine concentrations, including patients and those with serious co-morbid conditions. Patients with extremes in muscle mass or diet. The data above are obtained from the [employer] ( [employer]) which additionally recommends that when the eGFR is used in patients with extremes of body mass index for purposes of drug dosing, the eGFR should be mul tiplied by the estimated BMI. 2Result Comment: The eGFR is calculated using the CKD-EPI formula. In most young, healthy individuals the eGFR will be >90 mL/min/1.73m2. The eGFR declines with age. An eGFR of 60-89 may be normal in some populations, particularly the elderly, for whom the CKD-EPI formula has not been extensively validated. Use of the eGFR is not recommended in the following populations: Individuals with unstable creatinine concentrations, including patients and those with serious co-morbid conditions. Patients with extremes in muscle mass or diet. The data above are obtained from the [employer] ( [employer]) which additionally recommends that when the eGFR is used in patients with extremes of body mass index for purposes of drug dosing, the eGFR should be mul tiplied by the estimated BMI. 3Result Comment: The eGFR is calculated using the CKD-EPI formula. In most young, healthy individuals the eGFR will be >90 mL/min/1.73m2. The eGFR declines with age. An eGFR of 60-89 may be normal in some populations, particularly the elderly, for whom the CKD-EPI formula has not been extensively validated. Use of the eGFR is not recommended in the following populations: Individuals with unstable creatinine concentrations, including patients and those with serious co-morbid conditions. Patients with extremes in muscle mass or diet. The data above are obtained from the [employer] Program ( [employer]) which additionally recommends that when the eGFR is used in patients with extremes of body mass index for purposes of drug dosing, the eGFR should be mul tiplied by the estimated BMI. CARDIAC ENZYMES 1 2 3 Most recent to oldest [Reference Range]: 121 unit/L (08/07/17 12:13 PM) Total CK [12-191 unit/L] 2.0 ng/mL (08/07/17 12:13 PM) CK MB [0.5-3.6 ng/mL] 1.7 (08/07/17 12:13 PM) CK MB Index [0.0-2.5] 0.09 ng/mL (08/07/17 11:57 PM) 0.10 ng/mL (08/07/17 6:27 PM) 0.09 ng/mL (08/07/17 12:13 PM) Troponin-I [0.00-0.40 ng/mL] 224 pg/mL *HI* (08/07/17 12:13 PM) BNP [<=100 pg/mL] LIPIDS 1 2 3 Most recent to oldest [Reference Range]: 2.61 *LOW* (08/08/17 3:14 AM) CHD Risk [4.00-7.30] 128 mg/dL (08/08/17 3:14 AM) Chol [<=199 mg/dL] 38 mg/dL (08/08/17 3:14 AM) Trig [<=149 mg/dL] 49 mg/dL *LOW* (08/08/17 3:14 AM) HDL [>=61 mg/dL] 71 mg/dL (08/08/17 3:14 AM) LDL (Calculated) [<=99 mg/dL] 8 *NA* (08/08/17 3:14 AM) VLDL SPECIAL CHEMISTRY 1 2 3 Most recent to oldest [Reference Range]: 7.1 % *HI* (08/08/17 3:14 AM) Hgb A1C [<=5.6 %] HEMATOLOGY 1 2 3 Most recent to oldest [Reference Range]: 7.0 K/CMM (08/09/17 4:05 AM) 4.2 K/CMM (08/08/17 3:14 AM) 4.5 K/CMM (08/07/17 12:13 PM) WBC [3.7-10.4 K/CMM] 4.34 M/CMM *LOW* (08/09/17 4:05 AM) 3.97 M/CMM *LOW* (08/08/17 3:14 AM) 4.14 M/CMM *LOW* (08/07/17 12:13 PM) RBC [4.70-6.10 M/CMM] 12.3 g/dL *LOW* (08/09/17 4:05 AM) 11.2 g/dL *LOW* (08/08/17 3:14 AM) 11.6 g/dL *LOW* (08/07/17 12:13 PM) Hgb [14.0-18.0 g/dL] 37.7 % *LOW* (08/09/17 4:05 AM) 33.7 % *LOW* (08/08/17 3:14 AM) 35.0 % *LOW* (08/07/17 12:13 PM) Hct [42.0-54.0 %] 86.8 fL (08/09/17 4:05 AM) 84.9 fL (08/08/17 3:14 AM) 84.4 fL (08/07/17 12:13 PM) MCV [80.0-94.0 fL] 28.4 pg (08/09/17 4:05 AM) 28.2 pg (08/08/17 3:14 AM) 28.1 pg (08/07/17 12:13 PM) MCH [27.0-31.0 pg] 32.7 g/dL (08/09/17 4:05 AM) 33.2 g/dL (08/08/17 3:14 AM) 33.3 g/dL (08/07/17 12:13 PM) MCHC [32.0-36.0 g/dL] 18.5 % *HI* (08/09/17 4:05 AM) 17.9 % *HI* (08/08/17 3:14 AM) 17.9 % *HI* (08/07/17 12:13 PM) RDW [11.5-14.5 %] 10.7 fL *HI* (08/09/17 4:05 AM) 10.7 fL *HI* (08/08/17 3:14 AM) 10.8 fL *HI* (08/07/17 12:13 PM) MPV [7.4-10.4 fL] 166 K/CMM (08/09/17 4:05 AM) 172 K/CMM (08/08/17 3:14 AM) 194 K/CMM (08/07/17 12:13 PM) Platelet [133-450 K/CMM] 61.8 % (08/08/17 3:14 AM) 63.1 % (08/07/17 12:13 PM) Segs [45.0-75.0 %] 16.4 % *LOW* (08/08/17 3:14 AM) 16.3 % *LOW* (08/07/17 12:13 PM) Lymphocytes [20.0-40.0 %] 15.7 % *HI* (08/08/17 3:14 AM) 15.0 % *HI* (08/07/17 12:13 PM) Monocytes [2.0-12.0 %] 4.8 % *HI* (08/08/17 3:14 AM) 4.3 % *HI* (08/07/17 12:13 PM) Eosinophils [0.0-4.0 %] 1.3 % *HI* (08/08/17 3:14 AM) 1.3 % *HI* (08/07/17 12:13 PM) Basophils [0.0-1.0 %] 2.6 K/CMM (08/08/17 3:14 AM) 2.8 K/CMM (08/07/17 12:13 PM) Segs-Bands # [1.5-8.1 K/CMM] 0.7 K/CMM *LOW* (08/08/17 3:14 AM) 0.7 K/CMM *LOW* (08/07/17 12:13 PM) Lymphocytes # [1.0-5.5 K/CMM] 0.7 K/CMM (08/08/17 3:14 AM) 0.7 K/CMM (08/07/17 12:13 PM) Monocytes # [0.0-0.8 K/CMM] 0.2 K/CMM (08/08/17 3:14 AM) 0.2 K/CMM (08/07/17 12:13 PM) Eosinophils # [0.0-0.5 K/CMM] 0.1 K/CMM (08/08/17 3:14 AM) 0.1 K/CMM (08/07/17 12:13 PM) Basophils # [0.0-0.2 K/CMM] 13.9 seconds (08/07/17 12:13 PM) PT [12.0-14.7 seconds] 1.07 (08/07/17 12:13 PM) INR [0.85-1.17] 23.9 seconds (08/07/17 12:13 PM) PTT [22.9-35.8 seconds] Immunizations Not Given Vaccine Date Status Refusal Reason pneumococcal 13-valent vaccine 08/10/17 Not Given Permanently Refused influenza virus vaccine, inactivated 08/10/17 Not Given Permanently Refused Procedures Procedure Date Related Diagnosis Body Site Status Automatic defibrillator procedure Completed Parathyroidectomy Completed Social History Social History Type Response Alcohol Past, Type Beer. Frequency: 1-2 times per week. Smoking Status Former smoker; Ready to change: No; Concerns about tobacco use in household: No; Exposure to Tobacco Smoke None; Cigarette Smoking Last 365 Days No; Reg Smoking Cessation Counseling No entered on: 09/03/17 Assessment and Plan Extracted from: Title: Clinical Document Author: Lachelle Saldaña NP Date: 08/10/17 Patient will not be d/c on an HIGINIO/ARB due to elevated creatinine. Extracted from: Title: History and Physical Author: Kalen Galarza MD Date: 08/07/17 Malfunctioning ICD Suspected ventricular tachycardia Acute kidney injury on CKD Elevated liver enzymes Hypertensionand cardiomyopathy Diabetes mellitus Plan: Malfunction of his ICD with suspected V. tach. Flooved has been called we willevaluate ICD. According to cardiology recommendation patient will need his ICD changed sincehis ICD was beepingand this means that the batteries downand ICD needs to be changedpatient and familywas made aware of this. She has already on amiodarone drip right now we will continue thatpatient will be admitted to IMCU. Acute kidney injury on CKDcould be fromhypotension patient had transient hypotension patient was given some IV fluidsby EMS alreadyto monitor. Elevated liver enzymes again this could be from amiodaroneor this could be from the transient hypotension the patient had. Patient has history of cardiac myopathy with ICD/chronic systolic HFcontinue withCoreg,lisinopril,atorvastatin, Lasix. Will need to monitor creatinine. Diabetes mellituscontinue NovolinNPH twice a daywithinsulin with meals SCDs Continue inpatient carepossibleto midnight IMUdepending upon clinical course
--- OUTSIDE RECORDS SUMMARY | 2018-08-29 09:07 | XMS REPORT | Continuity of Care Document ---
Author Author [facility] Interface Address Unknown Phone Unavailable Problems Problem Status Onset Date Classification Date Reported Comments Source Hypertensive heart and chronic kidney disease with heart failure and stage 1 through stage 4 chronic kidney disease, or unspecified chronic kidney disease 09/12/2017 12/12/2017 [facility] EDEMA/ SOB Active 09/03/2017 [facility] Breakdown of cardiac pulse generator (battery), initial encounter 08/24/2017 11/16/2017 [facility] DIZZINESS Active 08/07/2017 [facility] Acute on chronic systolic heart failure 12/12/2017 [facility] Acute respiratory failure with hypoxia 12/12/2017 [facility] Type 2 diabetes mellitus with diabetic chronic kidney disease 12/12/2017 [facility] Chronic kidney disease, stage 2 12/12/2017 [facility] Hyperlipidemia, unspecified 12/12/2017 [facility] Obesity, unspecified 12/12/2017 [facility] Cardiomyopathy, unspecified 12/12/2017 [facility] Body mass index 29.0-29.9, adult 12/12/2017 [facility] Personal history of nicotine dependence 12/12/2017 [facility] Chronic obstructive pulmonary disease, unspecified 12/12/2017 [facility] prison use of insulin 12/12/2017 [facility] Presence of automatic cardiac defibrillator 12/12/2017 [facility] Cardiomyopathy Active Problem 12/12/2017 [facility] COPD (<span ID="[id number]">Confirmed</span>) Active Problem 12/12/2017 [facility] CHF (<span ID="[id number]">Confirmed</span>) Active Problem 12/12/2017 [facility] DM (<span ID="[id number]">Confirmed</span>) Active Problem 12/12/2017 [facility] HTN (<span ID="[id number]">Confirmed</span>) Active Problem 12/12/2017 [facility] Renal insufficiency Active Problem 12/12/2017 [facility] Ventricular tachycardia 11/16/2017 [facility] Acute kidney failure, unspecified 11/16/2017 [facility] Chronic systolic heart failure 11/16/2017 [facility] Dilated cardiomyopathy 11/16/2017 [facility] Chronic kidney disease, stage 3 11/16/2017 [facility] Hypothyroidism, unspecified 11/16/2017 [facility] Body mass index 32.0-32.9, adult 11/16/2017 [facility] HEART FAILURE, UNSPECIFIED Active [facility] VENTRICULAR TACHYCARDIA Active [facility] Medications Medication Details Route Status Patient Instructions Ordering Provider Order Date Source Microencapsulated Potassium Chloride 20 MEQ Extended Release Oral Tablet [Klor-Con] 20 mEq=1 tab, PO, Daily, # 30 tab, 0 Refill(s), Pharmacy: [facility] [id number] Active 09/05/2017 [facility] Furosemide 40 MG Oral Tablet [Lasix] 40 mg=1 tab, PO, BID, # 60 tab, 0 Refill(s), Pharmacy: [facility] [id number] Active 09/05/2017 [facility] lisinopril 5 mg oral tablet 5 mg=1 tab, PO, Daily, # 30 tab, 0 Refill(s), Pharmacy: [facility] [id number] Active 09/05/2017 [facility] atorvastatin 40 mg, 1 tab, Route: PO, Drug form: TAB, Bedtime, Dosing Weight 87.443, kg, Start date: 09/04/17 21:00:00 CDT, Duration: 30 day, Stop date: 10/03/17 21:00:00 CDTNotes: (Same as: Lipitor) No Longer Active 09/05/2017 [facility] Miralax 17 gm, 1 pkt, Route: PO, Drug form: PWDR, Daily, Dosing Weight 87.443, kg, Priority: NOW, Start date: 09/04/17 17:07:00 CDT, Duration: 30 day, Stop date: 10/04/17 9:00:00 CDTNotes: Dissolve in 8 oz of water or juice. (Same as: Miralax) No Longer Active 09/04/2017 [facility] Lasix 40 mg, 4 mL, Route: IVP, Drug form: INJ, Q8H-06, Dosing Weight 89.727, kg, Start date: 09/04/17 14:00:00 CDT, Duration: 30 day, Stop date: 10/04/17 6:00:00 CDTNotes: (Same as: Lasix) MEDICATION WASTE Product Size: 40 mg Product Wasted: ___ mg No Longer Active 09/04/2017 [facility] carvedilol 25 mg, 1 tab, Route: PO, Drug form: TAB, Q12H, Dosing Weight 87.443, kg, Start date: 09/04/17 13:00:00 CDT, Duration: 30 day, Stop date: 10/04/17 9:00:00 CDTNotes: Give with food. (Same As: Coreg) No Longer Active 09/04/2017 [facility] Amiodarone 400 mg, 2 tab, Route: PO, Drug form: TAB, Q12H, Dosing Weight 87.443, kg, Start date: 09/04/17 13:00:00 CDT, Duration: 30 day, Stop date: 10/04/17 9:00:00 CDTNotes: (Same as: Cordarone) No Longer Active 09/04/2017 [facility] Lisinopril 5 mg, 1 tab, Route: PO, Drug form: TAB, Daily, Dosing Weight 87.443, kg, Start date: 09/04/17 13:00:00 CDT, Stop date: 10/04/17 9:00:00 CDTNotes: (Same as: Prinivil, Zestril) No Longer Active 09/04/2017 [facility] Aspirin 81 MG Enteric Coated Tablet 81 mg, 1 tab, Route: PO, Drug form: ECTAB, Daily, Dosing Weight 89.727, kg, Start date: 09/04/17 9:00:00 CDT, Duration: 30 day, Stop date: 10/03/17 9:00:00 CDTNotes: Do not crush or chew. (Same As: Ecotrin) No Longer Active 09/04/2017 [facility] Potassium Chloride 1.33 MEQ/ML Oral Solution 40 mEq, 2 pkt, Route: PO, Drug form: PDR/REC, PRN, Dosing Weight 87.443, kg, PRN Abnormal Lab Result, Start date: 09/04/17 7:45:00 CDT, Duration: 30 day, Stop date: 10/04/17 7:44:00 CDT, potassium level Notes: (Same as: K-Dunia) With food and full glass of water No Longer Active 09/04/2017 [facility] Albuterol 0.833 MG/ML / Ipratropium Aldrich 0.167 MG/ML Inhalant Solution [DuoNeb] 3 mL, Route: NEB, Dosing Weight 87.443, kg, ONCE, Start date: 09/04/17 1:22:00 CDT, Stop date: 09/04/17 1:22:00 CDT Inactive 09/04/2017 [facility] Saline Flush 0.9% 10 ml, Route: IVP, Drug Form: INJ, Dosing Weight 89.727, kg, Q12H, Start date: 09/03/17 21:00:00 CDT, Duration: 30 day, Stop date: 10/03/17 9:00:00 CDTNotes: (Same as: BD Posiflush) No Longer Active 09/04/2017 [facility] Lasix 40 mg, 4 mL, Route: IVP, Drug form: INJ, BID, Dosing Weight 89.727, kg, Start date: 09/03/17 20:00:00 CDT, Duration: 30 day, Stop date: 10/03/17 17:00:00 CDTNotes: (Same as: Lasix) MEDICATION WASTE Product Size: 40 mg Product Wasted: ___ mg No Longer Active 09/04/2017 [facility] heparin sodium, porcine 2500 UNT/ML Injectable Solution 5,000 unit, 1 mL, Route: SUB-Q, Drug form: INJ, Q8H, Dosing Weight 89.727, kg, Start date: 09/03/17 16:00:00 CDT, Duration: 30 day, Stop date: 10/03/17 8:00:00 CDTNotes: porcine heparin No Longer Active 09/03/2017 [facility] carvedilol 25 mg oral tablet 25 mg=1 tab, PO, BID, 0 Refill(s) No Longer Active 09/03/2017 [facility] atorvastatin 40 mg oral tablet 40 mg=1 tab, PO, Daily, 0 Refill(s) No Longer Active 09/03/2017 [facility] Insulin Lispro 4 unit, 0.04 mL, Route: SUB-Q, Drug form: SOLN, TID-Before Meals, Dosing Weight 89.727, kg, PRN Blood Glucose Results, Start date: 09/03/17 14:03:00 CDT, Duration: 30 day, Stop date: 10/03/17 14:02:0 0 CDTNotes: (Same as: Humalog ) Roll in palms of hands gently; Do not shake `vigorously. "Single Patient Use Only " WASTE: F/P - Black; E - Municipal Trash Bin Stable for 28 days at room temperature. Expires in days from Date No Longer Active 09/03/2017 [facility] Dextrose 50% Syringe 12.5 gm, 25 mL, Route: IVP, Drug Form: INJ, Dosing Weight 89.727, kg, PRN, PRN Blood Glucose Results, Start date: 09/03/17 14:03:00 CDT, Duration: 30 day, Stop date: 10/03/17 14:02:00 CDT No Longer Active 09/03/2017 [facility] Glucagon 1 mg, Route: IM, Drug form: PDR/INJ, PRN, Dosing Weight 89.727, kg, PRN Blood Glucose Results, Start date: 09/03/17 14:03:00 CDT, Duration: 30 day, Stop date: 10/03/17 14:02:00 CDT No Longer Active 09/03/2017 [facility] Saline Flush 0.9% 10 ml, Route: IVP, Drug Form: INJ, Dosing Weight 89.727, kg, PRN, PRN Line Flush, Start date: 09/03/17 12:37:00 CDT, Duration: 30 day, Stop date: 10/03/17 12:36:00 CDTNotes: (Same as: BD Posiflush) No Longer Active 09/03/2017 [facility] Zofran 4 mg, 2 mL, Route: IV, Drug form: INJ, Q8H, Dosing Weight 89.727, kg, PRN Nausea, Start date: 09/03/17 12:37:00 CDT, Duration: 30 day, Stop date: 10/03/17 12:36:00 CDTNotes: (Same as: Zofran) MEDICATION WASTE Product Size: 4 mg Product Wasted: ___ mg Inactive 09/03/2017 [facility] Acetaminophen 325 MG / Hydrocodone Bitartrate 5 MG Oral Tablet [[place] 5/325] 1 tab, Route: PO, Drug Form: TAB, Dosing Weight 89.727, kg, Q4H, PRN Pain Score 4-6, Start date: 09/03/17 12:37:00 CDT, Duration: 30 day, Stop date: 10/03/17 12:36:00 CDT, Pain Score 1-6Notes: (Same as: [place] 325/5) Do not exceed 4gm/day of acetaminophen. No Longer Active 09/03/2017 [facility] Tums 500 mg, 1 tab, Route: CHEW, Drug form: CHEWTAB, TID, Dosing Weight 89.727, kg, PRN Indigestion, Start date: 09/03/17 12:37:00 CDT, Duration: 30 day, Stop date: 10/03/17 12:36:00 CDTNotes: (Same As: Tums) Calcium Carbonate 500 tz=978 mg elemental calcium Dose= mg calcium carbonate ( mg elemental calcium) No Longer Active 09/03/2017 [facility] Diphenhydramine 25 mg, 1 tab, Route: PO, Drug form: TAB, Bedtime, Dosing Weight 89.727, kg, PRN Insomnia, Start date: 09/03/17 12:37:00 CDT, Duration: 30 day, Stop date: 10/03/17 12:36:00 CDT No Longer Active 09/03/2017 [facility] Ondansetron 4 mg, 2 mL, Route: IVP, Drug form: INJ, Q8H, Dosing Weight 89.727, kg, PRN Nausea & Vomiting, Start date: 09/03/17 12:37:00 CDT, Duration: 30 day, Stop date: 10/03/17 12:36:00 CDTNotes: (Same as: Zofran) MEDICATION WASTE Product Size: 4 mg Product Wasted: ___ mg No Longer Active 09/03/2017 [facility] Hydralazine 10 mg, 0.5 mL, Route: IVP, Drug form: INJ, Q4H, Dosing Weight 89.727, kg, PRN Hypertension, Start date: 09/03/17 12:37:00 CDT, Stop date: 10/03/17 12:36:00 CDT, SBP > 160, DBP >110Notes: (Same as: Ap resoline) Push over 5 minutes No Longer Active 09/03/2017 [facility] Benadryl 25 mg, 1 tab, Route: PO, Drug form: TAB, TID, Dosing Weight 89.727, kg, PRN Itching, Start date: 09/03/17 12:37:00 CDT, Duration: 30 day, Stop date: 10/03/17 12:36:00 CDT No Longer Active 09/03/2017 [facility] Tylenol 650 mg, 2 tab, Route: PO, Drug form: TAB, QID, Dosing Weight 89.727, kg, PRN Pain 1-3/Temp > 100.4 F, Start date: 09/03/17 12:37:00 CDT, Duration: 30 day, Stop date: 10/03/17 12:36:00 CDTNotes: Do not exceed 4 gm/day. (Same as: Tylenol) No Longer Active 09/03/2017 [facility] Morphine 3 mg, 1.5 mL, Route: PO, Drug form: SOLN, Q4H, Dosing Weight 89.727, kg, PRN Pain Score 7-10, Start date: 09/03/17 12:37:00 CDT, Duration: 30 day, Stop date: 10/03/17 12:36:00 CDTNotes: (Same as:MORPhine Sulfate) No Longer Active 09/03/2017 [facility] Lasix 40 mg, 4 mL, Route: IVP, Drug form: INJ, ONCE, Dosing Weight 89.727, kg, Priority: STAT, Start date: 09/03/17 11:52:00 CDT, Stop date: 09/03/17 11:52:00 CDTNotes: (Same as: Lasix) MEDICATION WASTE Product Size: 40 mg Product Wasted: ___ mg Inactive 09/03/2017 [facility] Aspirin 324 mg, 4 tab, Route: CHEW, Drug form: CHEWTAB, ONCE, Dosing Weight 89.727, kg, Priority: STAT, Start date: 09/03/17 11:52:00 CDT, Stop date: 09/03/17 11:52:00 CDTNotes: Take with food. Inactive 09/03/2017 [facility] Furosemide 40 mg, 4 mL, Route: IVP, Drug form: INJ, ONCE, Dosing Weight 89.727, kg, Priority: STAT, Start date: 09/03/17 11:51:00 CDT, Stop date: 09/03/17 11:51:00 CDTNotes: (Same as: Lasix) MEDICATION WASTE Product Size: 40 mg Product Wasted: ___ mg Inactive 09/03/2017 [facility] Hydralazine 10 mg, 0.5 mL, Route: IV, Drug form: INJ, ONCE, Dosing Weight 89.727, kg, Start date: 09/03/17 11:51:00 CDT, Stop date: 09/03/17 11:51:00 CDTNotes: (Same as: Apresoline) Push over 5 minutes Inactive 09/03/2017 [facility] Saline Flush 0.9% 10 mL, Route: IVP, Drug Form: INJ, Dosing Weight 89.727, kg, PRN, PRN Line Flush, Start date: 09/03/17 10:52:00 CDT, Stop date: 09/04/17 8:09:00 CDTNotes: (Same as: BD Posiflush) No Longer Active 09/03/2017 [facility] Miralax 34 gm, 2 pkt, Route: PO, Drug form: PWDR, Daily, Dosing Weight 85, kg, Start date: 08/10/17 17:00:00 SINGLE RESOURCE BOSS, Duration: 30 day, Stop date: 09/09/17 9:00:00 CDTNotes: Dissolve in 8 oz of water or juice. (Same as: Miralax) Inactive 08/10/2017 [facility] Ondansetron 4 MG Disintegrating Tablet [Zofran] 4 mg=1 tab, PO, TID, PRN as needed for nausea/vomiting, Dissolve tab under tongue, # 30 tab, 0 Refill(s), Pharmacy: [facility] [id number] No Longer Active 08/10/2017 [facility] POLYETHYLENE GLYCOL 3350 142 MG/ML Oral Solution [Miralax] 17 gm, PO, Daily, PRN Constipation, X 31 day, # 527 gm, 0 Refill(s), Pharmacy: [facility] [id number] No Longer Active 08/10/2017 [facility] Docusate Sodium 50 MG / sennosides, FPC 8.6 MG Oral Tablet 1 tab, Route: PO, Drug Form: TAB, Dosing Weight 85, kg, BID, hold for lose BMs, Start date: 08/09/17 21:00:00 SINGLE RESOURCE BOSS, Duration: 30 day, Stop date: 09/08/17 17:00:00 CDTNotes: (Same as Mario-Dahiana) Equiv. to Deidra-Colace. No Longer Active 08/10/2017 [facility] Cefazolin 1 gm, Route: IVP, Q8H, Dosing Weight 85, kg, Start date: 08/09/17 16:00:00 SINGLE RESOURCE BOSS, Duration: 1 doses or times, Stop date: 08/09/17 16:00:00 SINGLE RESOURCE BOSS, ABX Indication: Surgical ProphylaxisNotes: (Same As: Jaylan De Leon) MEDICATION WASTE Product Size: 1000 mg Product Wasted: ___ mg Inactive 08/09/2017 [facility] Morphine 2 mg, 0.5 mL, Route: IVP, Drug form: SOLN, Q4H, Dosing Weight 85, kg, PRN Pain Score 7-10, Start date: 08/09/17 10:44:00 SINGLE RESOURCE BOSS, Duration: 30 day, Stop date: 09/08/17 10:43:00 CDTNotes: (Same as:MORPhine Sulfate) No Longer Active 08/09/2017 [facility] acetaminophen-codeine #3 1 tab, Route: PO, Drug Form: TAB, Dosing Weight 85, kg, Q4H, PRN Pain Score 4-6, Start date: 08/09/17 10:44:00 SINGLE RESOURCE BOSS, Duration: 30 day, Stop date: 09/08/17 10:43:00 CDTNotes: Do not exceed 4gm/day of acetaminophen. (Same as: Tylenol with Codeine # 3) No Longer Active 08/09/2017 [facility] Acetaminophen 325 mg, 1 tab, Route: PO, Drug form: TAB, Q4H, Dosing Weight 85, kg, PRN Pain 1-3/Temp > 100.4 F, Start date: 08/09/17 10:44:00 SINGLE RESOURCE BOSS, Duration: 30 day, Stop date: 09/08/17 10:43:00 CDTNotes: Do not ex ceed 4 gm/day. (Same as: Tylenol) No Longer Active 08/09/2017 [facility] Sodium Chloride 0.9% IV 250 mL 250 mL, Rate: 75 ml/hr, Infuse over: 3.3 hr, Route: IV, Dosing Weight 85 kg, Total Volume: 250, Start date: 08/09/17 10:44:00 SINGLE RESOURCE BOSS, Duration: 10 hr, Stop date: 08/09/17 20:43:00 SINGLE RESOURCE BOSS, 2.04, m2 Inactive 08/09/2017 [facility] Sodium Chloride 0.9% IV 500 mL 500 mL, Rate: 20 ml/hr, Infuse over: 25 hr, Route: IV, Dosing Weight 85 kg, Total Volume: 500, Start date: 08/09/17 0:01:00 SINGLE RESOURCE BOSS, Duration: 24 hr, Stop date: 08/10/17 0:00:00 SINGLE RESOURCE BOSS, 2.04, m2 No Longer Active 08/09/2017 [facility] Amiodarone 400 mg, Route: PO, Drug form: TAB, Daily, Dosing Weight 89.091, kg, Start date: 08/08/17 9:00:00 SINGLE RESOURCE BOSS, Duration: 30 day, Stop date: 09/06/17 9:00:00 CDT No Longer Active 08/08/2017 [facility] Novolin N 20 unit, 0.2 mL, Route: SUB-Q, Drug form: INJ, Before Breakfast, Dosing Weight 89.091, kg, Start date: 08/08/17 7:30:00 SINGLE RESOURCE BOSS, Duration: 30 day, Stop date: 09/06/17 7:30:00 CDTNotes: Roll in palms of hands gently; Do not shake vigorously. (Same as: Humulin N) Do not hold insulin without contacting prescriber WASTE: F/P - Black; E - Municipal Trash Bin Stable for 28 days at room temperature Expires in days from Date No Longer Active 08/08/2017 [facility] Coreg 25 mg, 1 tab, Route: PO, Drug form: TAB, Q12H, Dosing Weight 89.091, kg, Start date: 08/07/17 21:00:00 SINGLE RESOURCE BOSS, Duration: 30 day, Stop date: 09/06/17 9:00:00 CDTNotes: Give with food. (Same As: Coreg) No Longer Active 08/08/2017 [facility] atorvastatin 40 mg, 1 tab, Route: PO, Drug form: TAB, Bedtime, Dosing Weight 89.091, kg, Start date: 08/07/17 21:00:00 SINGLE RESOURCE BOSS, Duration: 30 day, Stop date: 09/05/17 21:00:00 CDTNotes: (Same as: Lipitor) No Longer Active 08/08/2017 [facility] Aspirin Enteric Coated 81 mg, 1 tab, Route: PO, Drug form: ECTAB, Daily, Dosing Weight 89.091, kg, Start date: 08/07/17 17:00:00 SINGLE RESOURCE BOSS, Duration: 30 day, Stop date: 09/06/17 9:00:00 CDTNotes: Do not crush or chew. (Same As: Ecotrin) No Longer Active 08/07/2017 [facility] Lisinopril 20 mg, 1 tab, Route: PO, Drug form: TAB, Daily, Dosing Weight 89.091, kg, Start date: 08/07/17 17:00:00 SINGLE RESOURCE BOSS, Duration: 30 day, Stop date: 09/06/17 9:00:00 CDTNotes: (Same as: Prinivil, Zestril) No Longer Active 08/07/2017 [facility] Novolin N 36 unit, 0.36 mL, Route: SUB-Q, Drug form: INJ, Before Dinner, Dosing Weight 89.091, kg, Start date: 08/07/17 16:30:00 SINGLE RESOURCE BOSS, Duration: 30 day, Stop date: 09/05/17 16:30:00 CDTNotes: Roll in palms of hands gently; Do not shake vigorously. (Same as: Humulin N) Do not hold insulin without contacting prescriber WASTE: F/P - Black; E - Municipal Trash Bin Stable for 28 days at room temperature Expires in days from Date No Longer Active 08/07/2017 [facility] Insulin Lispro 10 unit, 0.1 mL, Route: SUB-Q, Drug form: SOLN, TID-Before Meals, Dosing Weight 89.091, kg, Start date: 08/07/17 16:30:00 SINGLE RESOURCE BOSS, Duration: 30 day, Stop date: 09/06/17 11:30:00 CDTNotes: (Same as: Humalog ) Roll in palms of hands gently; Do not shake `vigorously. "Single Patient Use Only " WASTE: F/P - Black; E - Municipal Trash Bin Stable for 28 days at room temperature. Expires in days from Date No Longer Active 08/07/2017 [facility] gabapentin 600 MG Oral Tablet 300 mg, 1 cap, Route: PO, Drug form: CAP, TID, Dosing Weight 89.091, kg, Start date: 08/07/17 16:00:00 SINGLE RESOURCE BOSS, Duration: 30 day, Stop date: 09/06/17 15:00:00 CDTNotes: (Same as: Neurontin) No Longer Active 08/07/2017 [facility] Lasix 40 mg, 1 tab, Route: PO, Drug form: TAB, BID Diuretic, Dosing Weight 89.091, kg, Start date: 08/07/17 16:00:00 SINGLE RESOURCE BOSS, Duration: 30 day, Stop date: 09/06/17 8:00:00 CDTNotes: (Same as: Lasix) May cause GI upset. Give with food or milk. No Longer Active 08/07/2017 [facility] Aspirin 81 mg, PO, Daily, 0 Refill(s) Active 08/07/2017 [facility] gabapentin 600 MG Oral Tablet 600 mg=1 tab, PO, TID, # 270 tab, 0 Refill(s) Active 08/07/2017 [facility] AMIODarone 400 mg oral tablet 400 mg=1 tab, PO, BID, # 180 tab, 0 Refill(s) Active 08/07/2017 [facility] atorvastatin 40 mg, PO, Daily, 0 Refill(s) Active 08/07/2017 [facility] insulin, isophane 35 unit, SUB-Q, QPM, 0 Refill(s) Active 08/07/2017 [facility] carvedilol 25 mg oral tablet 25 mg=1 tab, PO, BID, # 180 tab, 0 Refill(s) Active 08/07/2017 [facility] Furosemide 40 MG Oral Tablet [Lasix] 40 mg=1 tab, PO, Daily, # 30 tab, 0 Refill(s) No Longer Active 08/07/2017 [facility] Insulin regular 20 unit, SUB-Q, TID-Before Meals, 0 Refill(s) No Longer Active 08/07/2017 [facility] lisinopril 20 mg oral tablet 20 mg=1 tab, PO, Daily, # 30 tab, 0 Refill(s) No Longer Active 08/07/2017 [facility] Trazodone 25 mg, 0.5 tab, Route: PO, Drug form: TAB, Bedtime, Dosing Weight 89.091, kg, PRN Sleep, Start date: 08/07/17 14:04:00 SINGLE RESOURCE BOSS, Duration: 30 day, Stop date: 09/06/17 14:03:00 CDTNotes: (Same As: Desyrel) No Longer Active 08/07/2017 [facility] Morphine 2 mg, 0.5 mL, Route: IVP, Drug form: INJ, Q4H, Dosing Weight 89.091, kg, PRN Pain Score 7-10, Start date: 08/07/17 14:04:00 SINGLE RESOURCE BOSS, Duration: 30 day, Stop date: 09/06/17 14:03:00 CDTNotes: (Same as:MORPhine Sulfate) No Longer Active 08/07/2017 [facility] Fleet Mineral Oil Enema 133 mL, Route: IA, Drug Form: MONTRELL, Dosing Weight 89.091, kg, ONCE, PRN Constipation, Start date: 08/07/17 14:04:00 CSTNotes: (Same as:Fleet Mineral Oil Enema) No Longer Active 08/07/2017 [facility] Lactulose 667 MG/ML Oral Solution 10 gm, 15 ml, Route: PO, Drug form: SYRP, BID, Dosing Weight 89.091, kg, PRN Constipation, Start date: 08/07/17 14:04:00 SINGLE RESOURCE BOSS, Duration: 30 day, Stop date: 09/06/17 14:03:00 CDTNotes: (Same as:Chronulac) No Longer Active 08/07/2017 [facility] Melatonin 3 mg, 1 tab, Route: PO, Drug form: TAB, Bedtime, Dosing Weight 89.091, kg, PRN Sleep, Start date: 08/07/17 14:04:00 SINGLE RESOURCE BOSS, Duration: 30 day, Stop date: 09/06/17 14:03:00 CDTNotes: (Same as: Melatonin) No Longer Active 08/07/2017 [facility] Bisacodyl 10 mg, 1 supp, Route: IA, Drug form: SUPP, Daily, Dosing Weight 89.091, kg, PRN Constipation, Start date: 08/07/17 14:04:00 SINGLE RESOURCE BOSS, Duration: 30 day, Stop date: 09/06/17 14:03:00 CDTNotes: (Same As: Dulcolax, Bisco-Lax) No Longer Active 08/07/2017 [facility] Metoprolol 5 mg, 5 mL, Route: IVP, Drug form: INJ, Q4H, Dosing Weight 89.091, kg, PRN Other -See Comment, Start date: 08/07/17 14:04:00 SINGLE RESOURCE BOSS, Duration: 30 day, Stop date: 09/06/17 14:03:00 CDTNotes: (Same as: Lo pressor) Push over 2 minutes No Longer Active 08/07/2017 [facility] Hydralazine 10 mg, 0.5 mL, Route: IVP, Drug form: INJ, Q4H, Dosing Weight 89.091, kg, PRN Other -See Comment, Start date: 08/07/17 14:04:00 SINGLE RESOURCE BOSS, Duration: 30 day, Stop date: 09/06/17 14:03:00 CDTNotes: (Same as: Apresoline) Push over 5 minutes No Longer Active 08/07/2017 [facility] sennosides, FPC 8.6 mg, 1 tab, Route: PO, Drug Form: TAB, Dosing Weight 89.091, kg, Daily, PRN Constipation, Start date: 08/07/17 14:04:00 SINGLE RESOURCE BOSS, Duration: 30 day, Stop date: 09/06/17 14:03:00 CDTNotes: (Same as: Senokot) No Longer Active 08/07/2017 [facility] Simethicone 80 mg, 1 tab, Route: PO, Drug form: CHEWTAB, Q6H, Dosing Weight 89.091, kg, PRN Gas, Start date: 08/07/17 14:04:00 SINGLE RESOURCE BOSS, Duration: 2 doses or times, Stop date: Limited # of timesNotes: (Same as: Mylic on) No Longer Active 08/07/2017 [facility] Dextromethorphan Hydrobromide 2 MG/ML / Guaifenesin 20 MG/ML Oral Solution 10 mL, Route: PO, Drug Form: LIQ, Dosing Weight 89.091, kg, Q4H, PRN Cough, Start date: 08/07/17 14:04:00 SINGLE RESOURCE BOSS, Duration: 30 day, Stop date: 09/06/17 14:03:00 CDTNotes: (dextromethorphan-guaifenesin 10-100/5 ml LIQ) (Same as: Robitussin-DM) No Longer Active 08/07/2017 [facility] Diphenhydramine 25 mg, 1 tab, Route: PO, Drug form: TAB, Q6H, Dosing Weight 89.091, kg, PRN Itching, Start date: 08/07/17 14:04:00 SINGLE RESOURCE BOSS, Duration: 30 day, Stop date: 09/06/17 14:03:00 CDT No Longer Active 08/07/2017 [facility] Insulin Lispro 1 unit, 0.01 mL, Route: SUB-Q, Drug form: SOLN, Bedtime, Dosing Weight 89.091, kg, PRN Blood Glucose Results, Start date: 08/07/17 14:02:00 SINGLE RESOURCE BOSS, Duration: 30 day, Stop date: 09/06/17 14:01:00 CDTNotes: (Same as: Humalog ) Roll in palms of hands gently; Do not shake `vigorously. "Single Patient Use Only " WASTE: F/P - Black; E - Municipal Trash Bin Stable for 28 days at room temperature. Expires in days from Date No Longer Active 08/07/2017 [facility] Dextrose 50% Syringe 25 gm, 50 mL, Route: IVP, Drug Form: INJ, Dosing Weight 89.091, kg, PRN, PRN Blood Glucose Results, Start date: 08/07/17 14:02:00 SINGLE RESOURCE BOSS, Duration: 30 day, Stop date: 09/06/17 15:01:00 CDT No Longer Active 08/07/2017 [facility] Glucagon 1 mg, Route: IM, Drug form: PDR/INJ, PRN, Dosing Weight 89.091, kg, PRN Blood Glucose Results, Start date: 08/07/17 14:02:00 SINGLE RESOURCE BOSS, Duration: 30 day, Stop date: 09/06/17 15:01:00 CDT No Longer Active 08/07/2017 [facility] Acetaminophen 650 mg, 2 tab, Route: PO, Drug form: TAB, Q4H, Dosing Weight 89.091, kg, PRN Pain 1-3/Temp > 100.4 F, Start date: 08/07/17 13:58:00 SINGLE RESOURCE BOSS, Duration: 30 day, Stop date: 09/06/17 13:57:00 CDTNotes: Do not exceed 4 gm/day. (Same as: Tylenol) No Longer Active 08/07/2017 [facility] Morphine 2 mg, Route: IVP, Q4H, Dosing Weight 89.091, kg, PRN Pain Score 7-10, Start date: 08/07/17 13:58:00 SINGLE RESOURCE BOSS, Duration: 30 day, Stop date: 09/06/17 13:57:00 CDT Inactive 08/07/2017 [facility] Aspirin 324 mg, 4 tab, Route: CHEW, Drug form: CHEWTAB, ONCE, Dosing Weight 89.091, kg, Priority: STAT, Start date: 08/07/17 12:50:00 SINGLE RESOURCE BOSS, Stop date: 08/07/17 12:50:00 CSTNotes: Take with food. Inactive 08/07/2017 [facility] AMIODarone 900 mg in D5W 500 ml IV 900 mg 900 mg, 500 mL, Rate: 1 mg/min for 6 hours, then reduce to 0.5 mg/min, Dosing Weight 89.091, kg, Route: IV, Total Volume: 500, Start Date: 08/07/17 12:28:00 SINGLE RESOURCE BOSS, Duration: 30 day, Stop date: 09/06/17 12:27:00 CDT, Replace Every: 12 hrNotes: Same as: Cordarone Use 0.22 micron in-line filter Concentration: 1.8 mg/ ml Initiate at 33.4mL/hr x6hr, then 16.7mL/hr x18hr. Infusion may be maintained up to 96hr OR until a stable rhythm is reached OR until discontinued by MD. No Longer Active 08/07/2017 [facility] Allergies, Adverse Reactions, Alerts Substance Category Reaction Severity Reaction type Status Date Reported Comments Source Immunizations Immunization Date Given Site Status Last Updated Comments Source pneumococcal 13-valent vaccine 08/11/2017 Not Given [facility] influenza virus vaccine, inactivated 08/11/2017 Not Given [facility] Results Order Name Results Value Reference Range Date Interpretation Comments Source CARDIAC ENZYMES BNP 983 pg/mL <=100 pg/mL 09/05/2017 [facility] ELECTROLYTES Chloride Lvl 98 meq/L 95 - 109 09/05/2017 [facility] ELECTROLYTES Potassium Lvl 4.0 meq/L 3.5 - 5.1 09/05/2017 [facility] ELECTROLYTES CO2 34 meq/L 24 - 32 09/05/2017 [facility] ELECTROLYTES eGFR 78 mL/min/1.73m2 09/05/2017 Result Comment: The eGFR is calculated using the [...] from the National Kidney Disease Education Program (NKDEP) which additionally recommends that when the eGFR is used in patients with extremes of body mass index for purposes of drug dosing, the eGFR should be multiplied by the estimated BMI. [facility] ELECTROLYTES Calcium Lvl 8.9 mg/dL 8.5 - 10.5 09/05/2017 [facility] ELECTROLYTES Creatinine Lvl 1.11 mg/dL 0.50 - 1.40 09/05/2017 [facility] ELECTROLYTES Sodium Lvl 138 meq/L 135 - 145 09/05/2017 [facility] ELECTROLYTES Glucose Lvl 158 mg/dL 70 - 99 09/05/2017 [facility] ELECTROLYTES BUN 19 mg/dL 7 - 22 09/05/2017 [facility] ELECTROLYTES AGAP 10.0 meq/L 10.0 - 20.0 09/05/2017 [facility] HEMATOLOGY RBC 3.64 M/CMM 4.70 - 6.10 09/05/2017 [facility] WBC 4.5 K/CMM 3.7 - 10.4 09/05/2017 [facility] HEMATOLOGY Hct 30.4 % 42.0 - 54.0 09/05/2017 [facility] HEMATOLOGY Hgb 10.2 g/dL 14.0 - 18.0 09/05/2017 [facility] HEMATOLOGY MPV 10.8 fL 7.4 - 10.4 09/05/2017 [facility] HEMATOLOGY MCH 28.1 pg 27.0 - 31.0 09/05/2017 [facility] HEMATOLOGY MCV 83.6 fL 80.0 - 94.0 09/05/2017 [facility] HEMATOLOGY Platelet 144 K/CMM 133 - 450 09/05/2017 [facility] HEMATOLOGY RDW 18.4 % 11.5 - 14.5 09/05/2017 [facility] HEMATOLOGY MCHC 33.7 g/dL 32.0 - 36.0 09/05/2017 [facility] CARDIAC ENZYMES BNP 854 pg/mL <=100 pg/mL 09/04/2017 [facility] CHEM PANEL Phosphorus 3.0 mg/dL 2.5 - 4.5 09/04/2017 [facility] CHEM PANEL Magnesium Lvl 2.0 mg/dL 1.8 - 2.4 09/04/2017 [facility] CHEM PANEL eGFR 62 mL/min/1.73m2 09/04/2017 Result Comment: The eGFR is calculated using the [...] from the National Kidney Disease Education Program (NKDEP) which additionally recommends that when the eGFR is used in patients with extremes of body mass index for purposes of drug dosing, the eGFR should be multiplied by the estimated BMI. [facility] CHEM PANEL Glucose Lvl 138 mg/dL 70 - 99 09/04/2017 [facility] CHEM PANEL Potassium Lvl 3.4 meq/L 3.5 - 5.1 09/04/2017 [facility] CHEM PANEL Sodium Lvl 140 meq/L 135 - 145 09/04/2017 [facility] CHEM PANEL AGAP 12.4 meq/L 10.0 - 20.0 09/04/2017 [facility] CHEM PANEL Creatinine Lvl 1.34 mg/dL 0.50 - 1.40 09/04/2017 [facility] CHEM PANEL BUN 21 mg/dL 7 - 22 09/04/2017 [facility] CHEM PANEL Chloride Lvl 99 meq/L 95 - 109 09/04/2017 [facility] CHEM PANEL CO2 32 meq/L 24 - 32 09/04/2017 [facility] CHEM PANEL Calcium Lvl 8.8 mg/dL 8.5 - 10.5 09/04/2017 [facility] ENDOCRINOLOGY Cortisol 12.1 ug/dl 09/04/2017 [facility] HEMATOLOGY MPV 10.6 fL 7.4 - 10.4 09/04/2017 [facility] HEMATOLOGY Platelet 154 K/CMM 133 - 450 09/04/2017 [facility] HEMATOLOGY RDW 18.9 % 11.5 - 14.5 09/04/2017 [facility] HEMATOLOGY MCHC 33.5 g/dL 32.0 - 36.0 09/04/2017 [facility] HEMATOLOGY WBC 5.2 K/CMM 3.7 - 10.4 09/04/2017 [facility] MCH 28.3 pg 27.0 - 31.0 09/04/2017 [facility] HEMATOLOGY RBC 3.52 M/CMM 4.70 - 6.10 09/04/2017 [facility] HEMATOLOGY MCV 84.4 fL 80.0 - 94.0 09/04/2017 [facility] HEMATOLOGY Hct 29.7 % 42.0 - 54.0 09/04/2017 [facility] HEMATOLOGY Hgb 10.0 g/dL 14.0 - 18.0 09/04/2017 [facility] CARDIAC ENZYMES Total CK 91 unit/L 12 - 09/04/2017 [facility] CARDIAC ENZYMES Troponin-I 0.07 ng/mL 0.00 - 0.40 09/04/2017 [facility] CARDIAC ENZYMES CK MB Index 1.9 0.0 - 2.5 09/04/2017 [facility] CARDIAC ENZYMES CK MB 1.7 ng/mL 0.5 - 3.6 09/04/2017 [facility] CARDIAC ENZYMES Troponin-I 0.07 ng/mL 0.00 - 0.40 09/03/2017 [facility] CARDIAC ENZYMES Total CK 101 unit/L 12 - 09/03/2017 [facility] CARDIAC ENZYMES CK MB Index 2.0 0.0 - 2.5 09/03/2017 [facility] CARDIAC ENZYMES CK MB 2.0 ng/mL 0.5 - 3.6 09/03/2017 [facility] CARDIAC ENZYMES CK MB 1.9 ng/mL 0.5 - 3.6 09/03/2017 [facility] CARDIAC ENZYMES Total CK 98 unit/L 12 - 191 09/03/2017 [facility] CARDIAC ENZYMES Troponin-I 0.06 ng/mL 0.00 - 0.40 09/03/2017 [facility] CARDIAC ENZYMES BNP 593 pg/mL <=100 pg/mL 09/03/2017 [facility] CARDIAC ENZYMES CK MB Index 1.9 0.0 - 2.5 09/03/2017 [facility] CHEM PANEL eGFR 70 mL/min/1.73m2 09/03/2017 Result Comment: The eGFR is calculated using the [...] from the National Kidney Disease Education Program (NKDEP) which additionally recommends that when the eGFR is used in patients with extremes of body mass index for purposes of drug dosing, the eGFR should be multiplied by the estimated BMI. [facility] CHEM PANEL Potassium Lvl 4.2 meq/L 3.5 - 5.1 09/03/2017 [facility] CHEM PANEL Chloride Lvl 103 meq/L 95 - 109 09/03/2017 [facility] CHEM PANEL CO2 30 meq/L 24 - 32 09/03/2017 [facility] CHEM PANEL Sodium Lvl 141 meq/L 135 - 145 09/03/2017 [facility] CHEM PANEL Calcium Lvl 8.7 mg/dL 8.5 - 10.5 09/03/2017 [facility] CHEM PANEL Albumin Lvl 2.7 g/dL 3.5 - 5.0 09/03/2017 [facility] CHEM PANEL ALT 55 unit/L 0 - 65 09/03/2017 [facility] CHEM PANEL AST 22 unit/L 0 - 37 09/03/2017 [facility] CHEM PANEL Total Protein 6.6 g/dL 6.4 - 8.4 09/03/2017 [facility] CHEM PANEL Alk Phos 54 unit/L 39 - 136 09/03/2017 [facility] CHEM PANEL Bili Total 0.7 mg/dL 0.2 - 1.3 09/03/2017 [facility] CHEM PANEL AGAP 12.2 meq/L 10.0 - 20.0 09/03/2017 [facility] CHEM PANEL B/C Ratio 20 6 - 25 09/03/2017 [facility] CHEM PANEL Globulin 3.9 g/dL 2.7 - 4.2 09/03/2017 [facility] CHEM PANEL A/G Ratio 0.7 0.7 - 1.6 09/03/2017 [facility] CHEM PANEL BUN 25 mg/dL 7 - 22 09/03/2017 [facility] CHEM PANEL Creatinine Lvl 1.22 mg/dL 0.50 - 1.40 09/03/2017 [facility] CHEM PANEL Glucose Lvl 146 mg/dL 70 - 99 09/03/2017 [facility] HEMATOLOGY PT 14.9 s 12.0 - 14.7 09/03/2017 [facility] HEMATOLOGY INR 1.16 0.85 - 1.17 09/03/2017 [facility] PTT 31.1 s 22.9 - 35.8 09/03/2017 [facility] MPV 10.4 fL 7.4 - 10.4 09/03/2017 [facility] MCV 85.4 fL 80.0 - 94.0 09/03/2017 [facility] MCH 27.7 pg 27.0 - 31.0 09/03/2017 [facility] MCHC 32.4 g/dL 32.0 - 36.0 09/03/2017 [facility] HEMATOLOGY RDW 18.8 % 11.5 - 14.5 09/03/2017 [facility] Platelet 154 K/CMM 133 - 450 09/03/2017 [facility] Hct 32.4 % 42.0 - 54.0 09/03/2017 [facility] Hgb 10.5 g/dL 14.0 - 18.0 09/03/2017 [facility] HEMATOLOGY RBC 3.79 M/CMM 4.70 - 6.10 09/03/2017 [facility] HEMATOLOGY WBC 5.2 K/CMM 3.7 - 10.4 09/03/2017 [facility] Monocytes # 0.7 K/CMM 0.0 - 0.8 09/03/2017 [facility] HEMATOLOGY Segs-Bands # 3.7 K/CMM 1.5 - 8.1 09/03/2017 [facility] HEMATOLOGY Eosinophils # 0.2 K/CMM 0.0 - 0.5 09/03/2017 [facility] HEMATOLOGY Basophils # 0.1 K/CMM 0.0 - 0.2 09/03/2017 [facility] HEMATOLOGY Lymphocytes # 0.5 K/CMM 1.0 - 5.5 09/03/2017 [facility] HEMATOLOGY Basophils 1.1 % 0.0 - 1.0 09/03/2017 [facility] HEMATOLOGY Eosinophils 4.6 % 0.0 - 4.0 09/03/2017 [facility] HEMATOLOGY Segs 72.1 % 45.0 - 75.0 09/03/2017 [facility] HEMATOLOGY Lymphocytes 8.8 % 20.0 - 40.0 09/03/2017 [facility] HEMATOLOGY Monocytes 13.4 % 2.0 - 12.0 09/03/2017 [facility] Chest 1view DX Chest 1view DX Patient Name: FERNANDO PHAM : 1945; Age: 71 years y/o Male MR: [id number] Study: Chest 1view DX 09/03/2017 10:52 AM CDT Ordering Physician: Clinical Indication: - sob; Comparison: 08/07/2017 Chest one view Mild cardiomegaly as before. Pulmonary vasculature is congested and there is mild interstitial pulmonary edema within the lungs. There is no regional pulmonary consolidation or atelectasis otherwise. No pleural effusion. Automatic implantable cardiac defibrillator implant, as before. IMPRESSION: Consider volume overload, congestive heart failure status. SL: ANNA-AHSAN 09/03/2017 - - Read by: Syed Mondragon MD Dictated Date/time: 09/03/17 11:43 Electronically Signed by: Syed Mondragon MD 09/03/17 11:44 FINAL REPORT [facility] ELECTROLYTES Potassium Lvl 3.9 meq/L 3.5 - 5.1 08/10/2017 [facility] ELECTROLYTES CO2 28 meq/L 24 - 32 08/10/2017 [facility] ELECTROLYTES Sodium Lvl 137 meq/L 135 - 145 08/10/2017 [facility] ELECTROLYTES Chloride Lvl 101 meq/L 95 - 109 08/10/2017 [facility] ELECTROLYTES Calcium Lvl 9.1 mg/dL 8.5 - 10.5 08/10/2017 [facility] ELECTROLYTES AGAP 11.9 meq/L 10.0 - 20.0 08/10/2017 [facility] ELECTROLYTES eGFR 42 mL/min/1.73m2 08/10/2017 Result Comment: The eGFR is calculated using the [...] from the National Kidney Disease Education Program (NKDEP) which additionally recommends that when the eGFR is used in patients with extremes of body mass index for purposes of drug dosing, the eGFR should be multiplied by the estimated BMI. [facility] ELECTROLYTES Glucose Lvl 148 mg/dL 70 - 99 08/10/2017 [facility] ELECTROLYTES BUN 42 mg/dL 7 - 22 08/10/2017 [facility] ELECTROLYTES Creatinine Lvl 1.84 mg/dL 0.50 - 1.40 08/10/2017 [facility] Ext Upper Venous Doppler Unilat US Ext Upper Venous Doppler Unilat US Exam: Left Ext Upper Venous Doppler Unilat US Clinical Indication: - LUE swelling - eval DVT. Comparison: None. TECHNIQUE: Sonographic evaluation of the upper extremity veins was performed using high resolution B-mode imaging, along with pulse and color Doppler imaging. FINDINGS: The internal jugular vein, subclavian vein, axillary vein, brachial vein, radial and ulnar veins are patent. There is no echogenic debris to suggest deep venous thrombosis. The basilic vein is patent. Left cephalic vein echogenic material is seen with loss of color Doppler flow and compressibility. This is consistent with superficial venous thrombosis. Mild left arm swelling is seen. The arm veins are compressible with normal color flow and augmentation demonstrated on Doppler spectral analysis. IMPRESSION: 1. No sonographic evidence of left upper extremity deep venous thrombosis. 2. Left cephalic superficial venous thrombosis, as noted above. REFERENCE: Deep veins include internal jugular, subclavian, axillary, brachial, radial and ulnar Superficial veins include external jugular, basilic, cephalic SL: [id number] 08/09/2017 - - Read by: Eleno Lopez MD Dictated Date/time: 08/09/17 16:34 Electronically Signed by: Eleno Lopez MD 08/09/17 16:35 FINAL REPORT [facility] CHEM PANEL eGFR 39 mL/min/1.73m2 08/09/2017 Result Comment: The eGFR is calculated using the [...] from the National Kidney Disease Education Program (NKDEP) which additionally recommends that when the eGFR is used in patients with extremes of body mass index for purposes of drug dosing, the eGFR should be multiplied by the estimated BMI. [facility] CHEM PANEL Creatinine Lvl 1.95 mg/dL 0.50 - 1.40 08/09/2017 [facility] CHEM PANEL BUN 40 mg/dL 7 - 22 08/09/2017 [facility] CHEM PANEL Glucose Lvl 132 mg/dL 70 - 99 08/09/2017 [facility] CHEM PANEL Calcium Lvl 8.5 mg/dL 8.5 - 10.5 08/09/2017 [facility] CHEM PANEL CO2 28 meq/L 24 - 32 08/09/2017 [facility] CHEM PANEL Chloride Lvl 102 meq/L 95 - 109 08/09/2017 [facility] CHEM PANEL Potassium Lvl 4.4 meq/L 3.5 - 5.1 08/09/2017 [facility] CHEM PANEL Sodium Lvl 137 meq/L 135 - 145 08/09/2017 [facility] CHEM PANEL AGAP 11.4 meq/L 10.0 - 20.0 08/09/2017 [facility] HEMATOLOGY MPV 10.7 fL 7.4 - 10.4 08/09/2017 [facility] Platelet 166 K/CMM 133 - 450 08/09/2017 [facility] RDW 18.5 % 11.5 - 14.5 08/09/2017 [facility] MCHC 32.7 g/dL 32.0 - 36.0 08/09/2017 [facility] MCH 28.4 pg 27.0 - 31.0 08/09/2017 [facility] MCV 86.8 fL 80.0 - 94.0 08/09/2017 [facility] Hct 37.7 % 42.0 - 54.0 08/09/2017 [facility] HEMATOLOGY Hgb 12.3 g/dL 14.0 - 18.0 08/09/2017 [facility] HEMATOLOGY RBC 4.34 M/CMM 4.70 - 6.10 08/09/2017 [facility] HEMATOLOGY WBC 7.0 K/CMM 3.7 - 10.4 08/09/2017 [facility] CHEM PANEL eGFR 36 mL/min/1.73m2 08/08/2017 Result Comment: The eGFR is calculated using the [...] from the National Kidney Disease Education Program (NKDEP) which additionally recommends that when the eGFR is used in patients with extremes of body mass index for purposes of drug dosing, the eGFR should be multiplied by the estimated BMI. [facility] CHEM PANEL Sodium Lvl 138 meq/L 135 - 145 08/08/2017 [facility] CHEM PANEL Potassium Lvl 4.0 meq/L 3.5 - 5.1 08/08/2017 [facility] CHEM PANEL BUN 44 mg/dL 7 - 22 08/08/2017 [facility] CHEM PANEL Creatinine Lvl 2.09 mg/dL 0.50 - 1.40 08/08/2017 [facility] CHEM PANEL Chloride Lvl 101 meq/L 95 - 109 08/08/2017 [facility] CHEM PANEL Glucose Lvl 161 mg/dL 70 - 99 08/08/2017 [facility] CHEM PANEL Globulin 3.6 g/dL 2.7 - 4.2 08/08/2017 [facility] CHEM PANEL A/G Ratio 0.8 0.7 - 1.6 08/08/2017 [facility] CHEM PANEL AST 134 unit/L 0 - 37 08/08/2017 [facility] CHEM PANEL ALT 291 unit/L 0 - 65 08/08/2017 [facility] CHEM PANEL Total Protein 6.4 g/dL 6.4 - 8.4 08/08/2017 [facility] CHEM PANEL Albumin Lvl 2.8 g/dL 3.5 - 5.0 08/08/2017 [facility] CHEM PANEL CO2 30 meq/L 24 - 32 08/08/2017 [facility] CHEM PANEL Calcium Lvl 8.7 mg/dL 8.5 - 10.5 08/08/2017 [facility] CHEM PANEL Alk Phos 41 unit/L 39 - 136 08/08/2017 [facility] CHEM PANEL B/C Ratio 21 6 - 25 08/08/2017 [facility] CHEM PANEL Bili Total 0.5 mg/dL 0.2 - 1.3 08/08/2017 [facility] CHEM PANEL AGAP 11.0 meq/L 10.0 - 20.0 08/08/2017 [facility] HEMATOLOGY Monocytes # 0.7 K/CMM 0.0 - 0.8 08/08/2017 [facility] HEMATOLOGY Eosinophils # 0.2 K/CMM 0.0 - 0.5 08/08/2017 [facility] HEMATOLOGY Lymphocytes # 0.7 K/CMM 1.0 - 5.5 08/08/2017 [facility] HEMATOLOGY Basophils # 0.1 K/CMM 0.0 - 0.2 08/08/2017 [facility] HEMATOLOGY Basophils 1.3 % 0.0 - 1.0 08/08/2017 [facility] HEMATOLOGY Eosinophils 4.8 % 0.0 - 4.0 08/08/2017 [facility] HEMATOLOGY Segs-Bands # 2.6 K/CMM 1.5 - 8.1 08/08/2017 [facility] HEMATOLOGY Segs 61.8 % 45.0 - 75.0 08/08/2017 [facility] HEMATOLOGY Monocytes 15.7 % 2.0 - 12.0 08/08/2017 [facility] HEMATOLOGY Lymphocytes 16.4 % 20.0 - 40.0 08/08/2017 [facility] HEMATOLOGY MCHC 33.2 g/dL 32.0 - 36.0 08/08/2017 [facility] MCH 28.2 pg 27.0 - 31.0 08/08/2017 [facility] HEMATOLOGY Platelet 172 K/CMM 133 - 450 08/08/2017 [facility] HEMATOLOGY MPV 10.7 fL 7.4 - 10.4 08/08/2017 [facility] HEMATOLOGY RDW 17.9 % 11.5 - 14.5 08/08/2017 [facility] HEMATOLOGY Hgb 11.2 g/dL 14.0 - 18.0 08/08/2017 [facility] HEMATOLOGY Hct 33.7 % 42.0 - 54.0 08/08/2017 [facility] HEMATOLOGY MCV 84.9 fL 80.0 - 94.0 08/08/2017 [facility] HEMATOLOGY RBC 3.97 M/CMM 4.70 - 6.10 08/08/2017 [facility] HEMATOLOGY WBC 4.2 K/CMM 3.7 - 10.4 08/08/2017 [facility] LIPIDS VLDL 8 08/08/2017 [facility] LIPIDS Chol 128 mg/dL <=199 mg/dL 08/08/2017 [facility] LIPIDS LDL (Calculated) 71 mg/dL <=99 mg/dL 08/08/2017 [facility] LIPIDS Trig 38 mg/dL <=149 mg/dL 08/08/2017 [facility] LIPIDS HDL 49 mg/dL >=61 mg/dL 08/08/2017 [facility] LIPIDS CHD Risk 2.61 4.00 - 7.30 08/08/2017 [facility] SPECIAL CHEMISTRY Hgb A1C 7.1 % <=5.6 % 08/08/2017 [facility] CARDIAC ENZYMES Troponin-I 0.09 ng/mL 0.00 - 0.40 08/08/2017 [facility] CARDIAC ENZYMES Troponin-I 0.10 ng/mL 0.00 - 0.40 08/08/2017 [facility] CARDIAC ENZYMES Troponin-I 0.09 ng/mL 0.00 - 0.40 08/07/2017 [facility] CARDIAC ENZYMES CK MB 2.0 ng/mL 0.5 - 3.6 08/07/2017 [facility] CARDIAC ENZYMES Total CK 121 unit/L 12 - 191 08/07/2017 [facility] CARDIAC ENZYMES BNP 224 pg/mL <=100 pg/mL 08/07/2017 [facility] CARDIAC ENZYMES CK MB Index 1.7 0.0 - 2.5 08/07/2017 [facility] CHEM PANEL Phosphorus 2.4 mg/dL 2.5 - 4.5 08/07/2017 [facility] CHEM PANEL Magnesium Lvl 2.7 mg/dL 1.8 - 2.4 08/07/2017 [facility] CHEM PANEL Bili Total 0.6 mg/dL 0.2 - 1.3 08/07/2017 [facility] CHEM PANEL Globulin 3.7 g/dL 2.7 - 4.2 08/07/2017 [facility] CHEM PANEL B/C Ratio 24 6 - 25 08/07/2017 [facility] CHEM PANEL A/G Ratio 0.9 0.7 - 1.6 08/07/2017 [facility] CHEM PANEL Total Protein 6.9 g/dL 6.4 - 8.4 08/07/2017 [facility] CHEM PANEL Alk Phos 41 unit/L 39 - 136 08/07/2017 [facility] CHEM PANEL AST 155 unit/L 0 - 37 08/07/2017 [facility] CHEM PANEL ALT 295 unit/L 0 - 65 08/07/2017 [facility] CHEM PANEL Albumin Lvl 3.2 g/dL 3.5 - 5.0 08/07/2017 [facility] HEMATOLOGY INR 1.07 0.85 - 1.17 08/07/2017 [facility] HEMATOLOGY PT 13.9 s 12.0 - 14.7 08/07/2017 [facility] HEMATOLOGY PTT 23.9 s 22.9 - 35.8 08/07/2017 [facility] HEMATOLOGY MCV 84.4 fL 80.0 - 94.0 08/07/2017 [facility] Hct 35.0 % 42.0 - 54.0 08/07/2017 [facility] WBC 4.5 K/CMM 3.7 - 10.4 08/07/2017 [facility] HEMATOLOGY MPV 10.8 fL 7.4 - 10.4 08/07/2017 [facility] MCHC 33.3 g/dL 32.0 - 36.0 08/07/2017 [facility] MCH 28.1 pg 27.0 - 31.0 08/07/2017 [facility] Platelet 194 K/CMM 133 - 450 08/07/2017 [facility] HEMATOLOGY RDW 17.9 % 11.5 - 14.5 08/07/2017 [facility] RBC 4.14 M/CMM 4.70 - 6.10 08/07/2017 [facility] Hgb 11.6 g/dL 14.0 - 18.0 08/07/2017 [facility] HEMATOLOGY Segs-Bands # 2.8 K/CMM 1.5 - 8.1 08/07/2017 [facility] HEMATOLOGY Lymphocytes # 0.7 K/CMM 1.0 - 5.5 08/07/2017 [facility] HEMATOLOGY Basophils 1.3 % 0.0 - 1.0 08/07/2017 [facility] HEMATOLOGY Eosinophils 4.3 % 0.0 - 4.0 08/07/2017 [facility] HEMATOLOGY Monocytes 15.0 % 2.0 - 12.0 08/07/2017 [facility] HEMATOLOGY Lymphocytes 16.3 % 20.0 - 40.0 08/07/2017 [facility] HEMATOLOGY Segs 63.1 % 45.0 - 75.0 08/07/2017 [facility] HEMATOLOGY Eosinophils # 0.2 K/CMM 0.0 - 0.5 08/07/2017 [facility] HEMATOLOGY Basophils # 0.1 K/CMM 0.0 - 0.2 08/07/2017 [facility] HEMATOLOGY Monocytes # 0.7 K/CMM 0.0 - 0.8 08/07/2017 [facility] Chest 1view DX Chest 1view DX Clinical Indication: - chf; Comparison: None FINDINGS: The portable AP single view radiograph provided for review. The exam demonstrates normal lung volumes without interstitial or airspace opacities, pleural effusions or pneumothorax. The heart size and pulmonary vasculature are normal. The trachea is midline. There are no clinically significant osseous abnormalities noted. Left automatic implantable cardiac defibrillator noted IMPRESSION: No chest radiographic evidence of acute cardiopulmonary disease. SL: [id number] 08/07/2017 - - Read by: Jermaine Ocasio MD Dictated Date/time: 08/07/17 18:13 Electronically Signed by: Jermaine Ocasio MD 08/07/17 18:14 FINAL REPORT [facility] Vital Signs Vital Sign Value Date Comments Source Systolic (mm Hg) 148 09/05/2017 [facility] Diastolic (mm Hg) 58 09/05/2017 [facility] Temperature Oral (F) 98.0 F 09/05/2017 [facility] Respitory Rate 18 09/05/2017 [facility] Heart Rate 65 09/05/2017 [facility] Temperature Oral (F) 98.1 F 09/05/2017 [facility] Heart Rate 68 09/05/2017 [facility] Respitory Rate 18 09/05/2017 [facility] Systolic (mm Hg) 138 09/05/2017 [facility] Diastolic (mm Hg) 71 09/05/2017 [facility] Systolic (mm Hg) 132 09/05/2017 [facility] Diastolic (mm Hg) 68 09/05/2017 [facility] Respitory Rate 18 09/05/2017 [facility] Temperature Oral (F) 98.4 F 09/05/2017 [facility] Heart Rate 69 09/05/2017 [facility] Weight 84.318 09/05/2017 [facility] Height 172.72 cm 09/03/2017 [facility] Weight 87.443 09/03/2017 [facility] BMI Calculated 29.31 09/03/2017 [facility] BMI Calculated 29.21 09/03/2017 [facility] Weight 89.727 09/03/2017 [facility] Height 175.26 cm 09/03/2017 [facility] Temperature Oral (F) 98.1 F 08/11/2017 [facility] Heart Rate 84 08/11/2017 [facility] Systolic (mm Hg) 128 08/11/2017 [facility] Diastolic (mm Hg) 70 08/11/2017 [facility] Respitory Rate 18 08/11/2017 [facility] Temperature Oral (F) 98.5 F 08/10/2017 [facility] Systolic (mm Hg) 135 08/10/2017 [facility] Diastolic (mm Hg) 71 08/10/2017 [facility] Heart Rate 77 08/10/2017 [facility] Respitory Rate 18 08/10/2017 [facility] Systolic (mm Hg) 125 08/10/2017 [facility] Diastolic (mm Hg) 64 08/10/2017 [facility] Respitory Rate 18 08/10/2017 [facility] Temperature Oral (F) 98.3 F 08/10/2017 [facility] Heart Rate 80 08/10/2017 [facility] BMI Calculated 28.49 08/07/2017 [facility] Height 172.72 cm 08/07/2017 [facility] Weight 85 08/07/2017 [facility] Weight 89.091 08/07/2017 [facility] BMI Calculated 32.68 08/07/2017 [facility] Height 165.1 cm 08/07/2017 [facility] Encounters Location Location Details Encounter Type Encounter Number Reason For Visit Attending Provider ADM Date DC Date Status Source [facility] Inpatient [id number] Kalen Galarza 08/07/2017 08/11/2017 [facility] Inpatient [id number] Jose Rees 09/03/2017 09/05/2017 [facility] Procedures Procedure Code Date Perfomer Comments Source Automatic defibrillator procedure [id number] [facility] Parathyroidectomy [id number] [facility]
--- OUTSIDE RECORDS SUMMARY | 2018-08-29 09:08 | XMS REPORT | Summary of Care ---
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 1 thr ough stage 4 chronic kidney disease, or unspecified chronic kidney disease (Final) - 09/11/17 Acute on chronic systolic (congestive) heart failure (Final) - Acute respiratory failure with hypoxia (Final) - Type 2 diabetes mellitus with diabetic chronic kidney disease (Final) - Chronic kidney disease, stage 2 (mild) (Final) - Hyperlipidemia, unspecified (Final) - Obesity, unspecified (Final) - Cardiomyopathy, unspecified (Final) - Body mass index (BMI) 29.0-29.9, adult (Final) - Personal history of nicotine dependence (Final) - Chronic obstructive pulmonary disease, unspecified (Final) - prison (current) use of insulin (Final) - Presence of automatic (implantable) cardiac defibrillator (Final) - Discharge Disposition: Home Care with Home Health Attending Physician: Jose Rees MD Admitting Physician: Jose Rees MD Vital Signs 1 2 3 Most recent to oldest [Reference Range]: 172.72 cm (09/03/17 3:49 PM) 175.26 cm (09/03/17 10:46 AM) Height 84.744 kg (09/04/17 4:35 AM) Current Weight 98.0 DegF (09/05/17 4:45 PM) 98.1 DegF (09/05/17 4:03 PM) 98.4 DegF (09/05/17 12:30 PM) Temperature Oral [96.4-99.1 DegF] 148/58 mmHg *HI* (09/05/17 4:45 PM) 138/71 mmHg (09/05/17 4:03 PM) 132/68 mmHg (09/05/17 12:30 PM) Blood Pressure [90-140/60-90 mmHg] 18 BRMIN (09/05/17 4:45 PM) 18 BRMIN (09/05/17 4:03 PM) 18 BRMIN (09/05/17 12:30 PM) Respiratory Rate [14-20 BRMIN] 65 bpm (09/05/17 4:45 PM) 68 bpm (09/05/17 4:03 PM) 69 bpm (09/05/17 12:30 PM) Peripheral Pulse Rate [60-100 bpm] 84.318 kg (09/05/17 5:11 AM) 87.443 kg (09/03/17 3:49 PM) 89.727 kg (09/03/17 10:46 AM) Weight 29.31 m2 (09/03/17 3:49 PM) 29.21 m2 (09/03/17 10:46 AM) Body Mass Index Problem List Condition Effective Dates Status Health Status Informant Cardiomyopathy(Confi Active rmed) COPD (chronic Active obstructive pulmonary disease)(Confirmed) CHF (congestive Active heart failure)(Confirmed) DM (diabetes Active mellitus)(Confirmed) HTN Active (hypertension)(Confi rmed) Renal Active insufficiency(Confir med) Allergies, Adverse Reactions, Alerts Substance Reaction Severity Status NKDA Active Medications AMIODarone 400 mg, 2 tab, Route: PO, Drug form: TAB, Q12H, Dosing Weight 87.443, kg, Start date: 09/04/17 13:00:00 CDT, Duration: 30 day, Stop date: 10/04/17 9:00:00 CDT Notes: (Same as: Cordarone) Start Date: 09/04/17 Stop Date: 09/05/17 Status: Discontinued aspirin 324 mg, 4 tab, Route: CHEW, Drug form: CHEWTAB, ONCE, Dosing Weight 89.727, kg, Priority: STAT, Start date: 09/03/17 11:52:00 CDT, Stop date: 09/03/17 11:52:00 CDT Notes: Take with food. Start Date: 09/03/17 Stop Date: 09/03/17 Status: Completed aspirin 81 mg tablet, enteric coated 81 mg, 1 tab, Route: PO, Drug form: ECTAB, Daily, Dosing Weight 89.727, kg, Star t date: 09/04/17 9:00:00 CDT, Duration: 30 day, Stop date: 10/03/17 9:00:00 CDT Notes: Do not crush or chew.(Same As: Ecotrin) Start Date: 09/04/17 Stop Date: 09/05/17 Status: Discontinued atorvastatin 40 mg, 1 tab, Route: PO, Drug form: TAB, Bedtime, Dosing Weight 87.443, kg, Star t date: 09/04/17 21:00:00 CDT, Duration: 30 day, Stop date: 10/03/17 21:00:00 CD T Notes: (Same as: Lipitor) Start Date: 09/04/17 Stop Date: 09/05/17 Status: Discontinued atorvastatin 40 mg oral tablet 40 mg=1 tab, PO, Daily, 0 Refill(s) Start Date: 09/03/17 Stop Date: 09/05/17 Status: Discontinued Benadryl 25 mg, 1 tab, Route: PO, Drug form: TAB, TID, Dosing Weight 89.727, kg, PRN Itch ing, Start date: 09/03/17 12:37:00 CDT, Duration: 30 day, Stop date: 10/03/17 12 :36:00 CDT Start Date: 09/03/17 Stop Date: 09/05/17 Status: Discontinued carvedilol 25 mg, 1 tab, Route: PO, Drug form: TAB, Q12H, Dosing Weight 87.443, kg, Start d ate: 09/04/17 13:00:00 CDT, Duration: 30 day, Stop date: 10/04/17 9:00:00 CDT Notes: Give with food. (Same As: Coreg) Start Date: 09/04/17 Stop Date: 09/05/17 Status: Discontinued carvedilol 25 mg oral tablet 25 mg=1 tab, PO, BID, 0 Refill(s) Start Date: 09/03/17 Stop Date: 09/05/17 Status: Discontinued Dextrose 50% Syringe 12.5 gm, 25 mL, Route: IVP, Drug Form: INJ, Dosing Weight 89.727, kg, PRN, PRN B lood Glucose Results, Start date: 09/03/17 14:03:00 CDT, Duration: 30 day, Stop date: 10/03/17 14:02:00 CDT Start Date: 09/03/17 Stop Date: 09/05/17 Status: Discontinued Dextrose 50% Syringe 25 gm, 50 mL, Route: IVP, Drug Form: INJ, Dosing Weight 89.727, kg, PRN, PRN Blo od Glucose Results, Start date: 09/03/17 14:03:00 CDT, Duration: 30 day, Stop da te: 10/03/17 14:02:00 CDT Start Date: 09/03/17 Stop Date: 09/05/17 Status: Discontinued diphenhydrAMINE 25 mg, 1 tab, Route: PO, Drug form: TAB, Bedtime, Dosing Weight 89.727, kg, PRN Insomnia, Start date: 09/03/17 12:37:00 CDT, Duration: 30 day, Stop date: 12:36:00 CDT Start Date: 09/03/17 Stop Date: 09/05/17 Status: Discontinued DuoNeb inhalation solution 3 mL, Route: NEB, Dosing Weight 87.443, kg, ONCE, Start date: 09/04/17 1:22:00 C DT, Stop date: 09/04/17 1:22:00 CDT Start Date: 09/04/17 Stop Date: 09/04/17 Status: Completed furosemide 40 mg, 4 mL, Route: IVP, Drug form: INJ, ONCE, Dosing Weight 89.727, kg, Priorit y: STAT, Start date: 09/03/17 11:51:00 CDT, Stop date: 09/03/17 11:51:00 CDT Notes: (Same as: Lasix) MEDICATION WASTE Product Size: 40 mgProduct Was epi: ___ mg Start Date: 09/03/17 Stop Date: 09/03/17 Status: Completed glucagon 1 mg, Route: IM, Drug form: PDR/INJ, PRN, Dosing Weight 89.727, kg, PRN Blood Gl ucose Results, Start date: 09/03/17 14:03:00 CDT, Duration: 30 day, Stop date: 0 10/03/17 14:02:00 CDT Start Date: 09/03/17 Stop Date: 09/05/17 Status: Discontinued heparin 5000 units/mL injectable solution 5,000 unit, 1 mL, Route: SUB-Q, Drug form: INJ, Q8H, Dosing Weight 89.727, kg, S tart date: 09/03/17 16:00:00 CDT, Duration: 30 day, Stop date: 10/03/17 8:00:00 CDT Notes: porcine heparin Start Date: 09/03/17 Stop Date: 09/05/17 Status: Discontinued hydrALAZINE 10 mg, 0.5 mL, Route: IVP, Drug form: INJ, Q4H, Dosing Weight 89.727, kg, PRN Hy pertension, Start date: 09/03/17 12:37:00 CDT, Stop date: 10/03/17 12:36:00 CDT, SBP > 160, DBP >110 Notes: (Same as: Apresoline)Push over 5 minutes Start Date: 09/03/17 Stop Date: 09/05/17 Status: Discontinued hydrALAZINE 10 mg, 0.5 mL, Route: IV, Drug form: INJ, ONCE, Dosing Weight 89.727, kg, Start date: 09/03/17 11:51:00 CDT, Stop date: 09/03/17 11:51:00 CDT Notes: (Same as: Apresoline)Push over 5 minutes Start Date: 09/03/17 Stop Date: 09/03/17 Status: Completed insulin lispro 4 unit, 0.04 mL, Route: SUB-Q, Drug form: SOLN, TID-Before Meals, Dosing Weight 89.727, kg, PRN Blood Glucose Results, Start date: 09/03/17 14:03:00 CDT, Durati on: 30 day, Stop date: 10/03/17 14:02:00 CDT Notes: (Same as: Humalog ) Roll in palms of hands gently; Do not shake `vigorou sly. "Single Patient Use Only " WASTE: F/P - Black; E - [facility] [address] [address] able for 28 days at room temperature.Expires in days from Da te Start Date: 09/03/17 Stop Date: 09/05/17 Status: Discontinued insulin lispro 2 unit, 0.02 mL, Route: SUB-Q, Drug form: SOLN, TID-Before Meals, Dosing Weight 89.727, kg, PRN Blood Glucose Results, Start date: 09/03/17 14:03:00 CDT, Durati on: 30 day, Stop date: 10/03/17 14:02:00 CDT Notes: (Same as: Humalog ) Roll in palms of hands gently; Do not shake `vigorou sly. "Single Patient Use Only " WASTE: F/P - Black; E - [facility] [address] able for 28 days at room temperature.Expires in days from Da te Start Date: 09/03/17 Stop Date: 09/05/17 Status: Discontinued insulin lispro 3 unit, 0.03 mL, Route: SUB-Q, Drug form: SOLN, TID-Before Meals, Dosing Weight 89.727, kg, PRN Blood Glucose Results, Start date: 09/03/17 14:03:00 CDT, Durati on: 30 day, Stop date: 10/03/17 14:02:00 CDT Notes: (Same as: Humalog ) Roll in palms of hands gently; Do not shake `vigorou sly. "Single Patient Use Only " WASTE: F/P - Black; E - [facility] [address] able for 28 days at room temperature.Expires in days from Da te Start Date: 09/03/17 Stop Date: 09/05/17 Status: Discontinued insulin lispro 1 unit, 0.01 mL, Route: SUB-Q, Drug form: SOLN, TID-Before Meals, Dosing Weight 89.727, kg, PRN Blood Glucose Results, Start date: 09/03/17 14:03:00 CDT, Durati on: 30 day, Stop date: 10/03/17 14:02:00 CDT Notes: (Same as: Humalog ) Roll in palms of hands gently; Do not shake `vigorou sly. "Single Patient Use Only " WASTE: F/P - Black; E - [facility] [address] able for 28 days at room temperature.Expires in days from Da te Start Date: 09/03/17 Stop Date: 09/05/17 Status: Discontinued insulin lispro 4 unit, 0.04 mL, Route: SUB-Q, Drug form: SOLN, Bedtime, Dosing Weight 89.727, k g, PRN Blood Glucose Results, Start date: 09/03/17 14:03:00 CDT, Duration: 30 da y, Stop date: 10/03/17 14:02:00 CDT Notes: (Same as: Humalog ) Roll in palms of hands gently; Do not shake `vigorou sly. "Single Patient Use Only " WASTE: F/P - Black; E - [facility] [address] able for 28 days at room temperature.Expires in days from Da te Start Date: 09/03/17 Stop Date: 09/05/17 Status: Discontinued insulin lispro 3 unit, 0.03 mL, Route: SUB-Q, Drug form: SOLN, Bedtime, Dosing Weight 89.727, k g, PRN Blood Glucose Results, Start date: 09/03/17 14:03:00 CDT, Duration: 30 da y, Stop date: 10/03/17 14:02:00 CDT Notes: (Same as: Humalog ) Roll in palms of hands gently; Do not shake `vigorou sly. "Single Patient Use Only " WASTE: F/P - Black; E - [facility] [address] able for 28 days at room temperature.Expires in days from Da te Start Date: 09/03/17 Stop Date: 09/05/17 Status: Discontinued insulin lispro 5 unit, 0.05 mL, Route: SUB-Q, Drug form: SOLN, TID-Before Meals, Dosing Weight 89.727, kg, PRN Blood Glucose Results, Start date: 09/03/17 14:03:00 CDT, Durati on: 30 day, Stop date: 10/03/17 14:02:00 CDT Notes: (Same as: Humalog ) Roll in palms of hands gently; Do not shake `vigorou sly. "Single Patient Use Only " WASTE: F/P - Black; E - [facility] [address] able for 28 days at room temperature.Expires in days from Da te Start Date: 09/03/17 Stop Date: 09/05/17 Status: Discontinued insulin lispro 2 unit, 0.02 mL, Route: SUB-Q, Drug form: SOLN, Bedtime, Dosing Weight 89.727, k g, PRN Blood Glucose Results, Start date: 09/03/17 14:03:00 CDT, Duration: 30 da y, Stop date: 10/03/17 14:02:00 CDT Notes: (Same as: Humalog ) Roll in palms of hands gently; Do not shake `vigorou sly. "Single Patient Use Only " WASTE: F/P - Black; E - [facility] [address] able for 28 days at room temperature.Expires in days from Da te Start Date: 09/03/17 Stop Date: 09/05/17 Status: Discontinued insulin lispro 1 unit, 0.01 mL, Route: SUB-Q, Drug form: SOLN, Bedtime, Dosing Weight 89.727, k g, PRN Blood Glucose Results, Start date: 09/03/17 14:03:00 CDT, Duration: 30 da y, Stop date: 10/03/17 14:02:00 CDT Notes: (Same as: Humalog ) Roll in palms of hands gently; Do not shake `vigorou sly. "Single Patient Use Only " WASTE: F/P - Black; E - [facility] [address] able for 28 days at room temperature.Expires in days from Da te Start Date: 09/03/17 Stop Date: 09/05/17 Status: Discontinued Klor-Con M20 oral tablet, extended release 20 mEq=1 tab, PO, Daily, # 30 tab, 0 Refill(s), Pharmacy: [id number] Start Date: 09/05/17 Stop Date: 10/05/17 Status: Ordered Lasix 40 mg, 4 mL, Route: IVP, Drug form: INJ, BID, Dosing Weight 89.727, kg, Start da te: 09/03/17 20:00:00 CDT, Duration: 30 day, Stop date: 10/03/17 17:00:00 CDT Notes: (Same as: Lasix) MEDICATION WASTE Product Size: 40 mgProduct Was epi: ___ mg Start Date: 09/03/17 Stop Date: 09/04/17 Status: Discontinued Lasix 40 mg, 4 mL, Route: IVP, Drug form: INJ, Q8H-06, Dosing Weight 89.727, kg, Start date: 09/04/17 14:00:00 CDT, Duration: 30 day, Stop date: 10/04/17 6:00:00 CDT Notes: (Same as: Lasix) MEDICATION WASTE Product Size: 40 mgProduct Was epi: ___ mg Start Date: 09/04/17 Stop Date: 09/05/17 Status: Discontinued Lasix 40 mg, 4 mL, Route: IVP, Drug form: INJ, ONCE, Dosing Weight 89.727, kg, Priorit y: STAT, Start date: 09/03/17 11:52:00 CDT, Stop date: 09/03/17 11:52:00 CDT Notes: (Same as: Lasix) MEDICATION WASTE Product Size: 40 mgProduct Was epi: ___ mg Start Date: 09/03/17 Stop Date: 09/03/17 Status: Discontinued Lasix 40 mg oral tablet 40 mg=1 tab, PO, BID, # 60 tab, 0 Refill(s), Pharmacy: [id number] Start Date: 09/05/17 Stop Date: 10/05/17 Status: Ordered lisinopril 5 mg, 1 tab, Route: PO, Drug form: TAB, Daily, Dosing Weight 87.443, kg, Start d ate: 09/04/17 13:00:00 CDT, Stop date: 10/04/17 9:00:00 CDT Notes: (Same as: Tasha Nicole) Start Date: 09/04/17 Stop Date: 09/05/17 Status: Discontinued lisinopril 5 mg oral tablet 5 mg=1 tab, PO, Daily, # 30 tab, 0 Refill(s), Pharmacy: [id number] Start Date: 09/05/17 Stop Date: 10/05/17 Status: Ordered MiraLax 17 gm, 1 pkt, Route: PO, Drug form: PWDR, Daily, Dosing Weight 87.443, kg, Prior ity: NOW, Start date: 09/04/17 17:07:00 CDT, Duration: 30 day, Stop date: 9:00:00 CDT Notes: Dissolve in 8 oz of water or juice.(Same as: Miralax) Start Date: 09/04/17 Stop Date: 09/05/17 Status: Discontinued morphine Sulfate 3 mg, 1.5 mL, Route: PO, Drug form: SOLN, Q4H, Dosing Weight 89.727, kg, PRN Luisa n Score 7-10, Start date: 09/03/17 12:37:00 CDT, Duration: 30 day, Stop date: 12:36:00 CDT Notes: (Same as:MORPhine Sulfate) Start Date: 09/03/17 Stop Date: 09/05/17 Status: Discontinued [place] 5/325 oral tablet 1 tab, Route: PO, Drug Form: TAB, Dosing Weight 89.727, kg, Q4H, PRN Pain Score 4-6, Start date: 09/03/17 12:37:00 CDT, Duration: 30 day, Stop date: 10/03/17 12 :36:00 CDT, Pain Score 1-6 Notes: (Same as: [place] 325/5) Do not exceed 4gm/day of acetaminophen. Start Date: 09/03/17 Stop Date: 09/05/17 Status: Discontinued ondansetron 4 mg, 2 mL, Route: IVP, Drug form: INJ, Q8H, Dosing Weight 89.727, kg, PRN Nause a & Vomiting, Start date: 09/03/17 12:37:00 CDT, Duration: 30 day, Stop date: 10/03/17 12:36:00 CDT Notes: (Same as: Zofran) MEDICATION WASTE Product Size: 4 mgProduct Was epi: ___ mg Start Date: 09/03/17 Stop Date: 09/05/17 Status: Discontinued potassium chloride 20 mEq/15 mL oral liquid 40 mEq, 2 pkt, Route: PO, Drug form: PDR/REC, PRN, Dosing Weight 87.443, kg, PRN Abnormal Lab Result, Start date: 09/04/17 7:45:00 CDT, Duration: 30 day, Stop d ate: 10/04/17 7:44:00 CDT, potassium level < 4.0 Notes: (Same as: K-Dunia) With food and full glass of water Start Date: 09/04/17 Stop Date: 09/05/17 Status: Discontinued Saline Flush 0.9% 10 ml, Route: IVP, Drug Form: INJ, Dosing Weight 89.727, kg, PRN, PRN Line Flush , Start date: 09/03/17 12:37:00 CDT, Duration: 30 day, Stop date: 10/03/17 12:36 :00 CDT Notes: (Same as: BD Posiflush) Start Date: 09/03/17 Stop Date: 09/05/17 Status: Discontinued Saline Flush 0.9% 10 ml, Route: IVP, Drug Form: INJ, Dosing Weight 89.727, kg, Q12H, Start date: 0 09/03/17 21:00:00 CDT, Duration: 30 day, Stop date: 10/03/17 9:00:00 CDT Notes: (Same as: BD Posiflush) Start Date: 09/03/17 Stop Date: 09/05/17 Status: Discontinued Saline Flush 0.9% 10 mL, Route: IVP, Drug Form: INJ, Dosing Weight 89.727, kg, PRN, PRN Line Flush , Start date: 09/03/17 10:52:00 CDT, Stop date: 09/04/17 8:09:00 CDT Notes: (Same as: BD Posiflush) Start Date: 09/03/17 Stop Date: 09/04/17 Status: Completed Tums 500 mg, 1 tab, Route: CHEW, Drug form: CHEWTAB, TID, Dosing Weight 89.727, kg, P RN Indigestion, Start date: 09/03/17 12:37:00 CDT, Duration: 30 day, Stop date: 10/03/17 12:36:00 CDT Notes: (Same As: Tums)Calcium Carbonate 500 pp=948 mg elemental calcium Dose=_ mg calcium carbonate ( mg elemental calcium) Start Date: 09/03/17 Stop Date: 09/05/17 Status: Discontinued Tylenol 650 mg, 2 tab, Route: PO, Drug form: TAB, QID, Dosing Weight 89.727, kg, PRN Luisa n 1-3/Temp > 100.4 F, Start date: 09/03/17 12:37:00 CDT, Duration: 30 day, Stop date: 10/03/17 12:36:00 CDT Notes: Do not exceed 4 gm/day. (Same as: Tylenol) Start Date: 09/03/17 Stop Date: 09/05/17 Status: Discontinued Zofran 4 mg, 2 mL, Route: IV, Drug form: INJ, Q8H, Dosing Weight 89.727, kg, PRN Nausea , Start date: 09/03/17 12:37:00 CDT, Duration: 30 day, Stop date: 10/03/17 12:36 :00 CDT Notes: (Same as: Zofran) MEDICATION WASTE Product Size: 4 mgProduct Was epi: ___ mg Start Date: 09/03/17 Stop Date: 09/03/17 Status: Deleted Results ELECTROLYTES 1 2 3 Most recent to oldest [Reference Range]: 138 mEq/L (09/05/17 4:14 AM) 140 mEq/L (09/04/17 4:04 AM) 141 mEq/L (09/03/17 11:21 AM) Sodium Lvl [135-145 mEq/L] 4.0 mEq/L (09/05/17 4:14 AM) 3.4 mEq/L *LOW* (09/04/17 4:04 AM) 4.2 mEq/L (09/03/17 11:21 AM) Potassium Lvl [3.5-5.1 mEq/L] 98 mEq/L (09/05/17 4:14 AM) 99 mEq/L (09/04/17 4:04 AM) 103 mEq/L (09/03/17 11:21 AM) Chloride Lvl [95-109 mEq/L] 34 mEq/L *HI* (09/05/17 4:14 AM) 32 mEq/L (09/04/17 4:04 AM) 30 mEq/L (09/03/17 11:21 AM) CO2 [24-32 mEq/L] 10.0 mEq/L (09/05/17 4:14 AM) 12.4 mEq/L (09/04/17 4:04 AM) 12.2 mEq/L (09/03/17 11:21 AM) AGAP [10.0-20.0 mEq/L] CHEM PANEL 1 2 3 Most recent to oldest [Reference Range]: 1.11 mg/dL (09/05/17 4:14 AM) 1.34 mg/dL (09/04/17 4:04 AM) 1.22 mg/dL (09/03/17 11:21 AM) Creatinine Lvl [0.50-1.40 mg/dL] 78 mL/min/1.73m2 1 *NA* (09/05/17 4:14 AM) 62 mL/min/1.73m2 2 *NA* (09/04/17 4:04 AM) 70 mL/min/1.73m2 3 *NA* (09/03/17 11:21 AM) eGFR 19 mg/dL (09/05/17 4:14 AM) 21 mg/dL (09/04/17 4:04 AM) 25 mg/dL *HI* (09/03/17 11:21 AM) BUN [7-22 mg/dL] 20 (09/03/17 11:21 AM) B/C Ratio [6-25] 158 mg/dL *HI* (09/05/17 4:14 AM) 138 mg/dL *HI* (09/04/17 4:04 AM) 146 mg/dL *HI* (09/03/17 11:21 AM) Glucose Lvl [70-99 mg/dL] 6.6 g/dL (09/03/17 11:21 AM) Total Protein [6.4-8.4 g/dL] 2.7 g/dL *LOW* (09/03/17 11:21 AM) Albumin Lvl [3.5-5.0 g/dL] 3.9 g/dL (09/03/17 11:21 AM) Globulin [2.7-4.2 g/dL] 0.7 (09/03/17 11:21 AM) A/G Ratio [0.7-1.6] 8.9 mg/dL (09/05/17 4:14 AM) 8.8 mg/dL (09/04/17 4:04 AM) 8.7 mg/dL (09/03/17 11:21 AM) Calcium Lvl [8.5-10.5 mg/dL] 3.0 mg/dL (09/04/17 4:04 AM) Phosphorus [2.5-4.5 mg/dL] 2.0 mg/dL (09/04/17 4:04 AM) Magnesium Lvl [1.8-2.4 mg/dL] 55 unit/L (09/03/17 11:21 AM) ALT [0-65 unit/L] 22 unit/L (09/03/17 11:21 AM) AST [0-37 unit/L] 54 unit/L (09/03/17 11:21 AM) Alk Phos [39-136 unit/L] 0.7 mg/dL (09/03/17 11:21 AM) Bili Total [0.2-1.3 mg/dL] 1Result Comment: The [...] 3 Most recent to oldest [Reference Range]: 91 unit/L (09/03/17 11:26 PM) 101 unit/L (09/03/17 5:32 PM) 98 unit/L (09/03/17 11:21 AM) Total CK [12-191 unit/L] 1.7 ng/mL (09/03/17 11:26 PM) 2.0 ng/mL (09/03/17 5:32 PM) 1.9 ng/mL (09/03/17 11:21 AM) CK MB [0.5-3.6 ng/mL] 1.9 (09/03/17 11:26 PM) 2.0 (09/03/17 5:32 PM) 1.9 (09/03/17 11:21 AM) CK MB Index [0.0-2.5] 0.07 ng/mL (09/03/17 11:26 PM) 0.07 ng/mL (09/03/17 5:32 PM) 0.06 ng/mL (09/03/17 11:21 AM) Troponin-I [0.00-0.40 ng/mL] 983 pg/mL *HI* (09/05/17 4:14 AM) 854 pg/mL *HI* (09/04/17 4:04 AM) 593 pg/mL *HI* (09/03/17 11:21 AM) BNP [<=100 pg/mL] ENDOCRINOLOGY 1 2 3 Most recent to oldest [Reference Range]: 12.1 ug/dl *NA* (09/04/17 4:04 AM) Cortisol HEMATOLOGY 1 2 3 Most recent to oldest [Reference Range]: 4.5 K/CMM (09/05/17 4:14 AM) 5.2 K/CMM (09/04/17 4:04 AM) 5.2 K/CMM (09/03/17 11:21 AM) WBC [3.7-10.4 K/CMM] 3.64 M/CMM *LOW* (09/05/17 4:14 AM) 3.52 M/CMM *LOW* (09/04/17 4:04 AM) 3.79 M/CMM *LOW* (09/03/17 11:21 AM) RBC [4.70-6.10 M/CMM] 10.2 g/dL *LOW* (09/05/17 4:14 AM) 10.0 g/dL *LOW* (09/04/17 4:04 AM) 10.5 g/dL *LOW* (09/03/17 11:21 AM) Hgb [14.0-18.0 g/dL] 30.4 % *LOW* (09/05/17 4:14 AM) 29.7 % *LOW* (09/04/17 4:04 AM) 32.4 % *LOW* (09/03/17 11:21 AM) Hct [42.0-54.0 %] 83.6 fL (09/05/17 4:14 AM) 84.4 fL (09/04/17 4:04 AM) 85.4 fL (09/03/17 11:21 AM) MCV [80.0-94.0 fL] 28.1 pg (09/05/17 4:14 AM) 28.3 pg (09/04/17 4:04 AM) 27.7 pg (09/03/17 11:21 AM) MCH [27.0-31.0 pg] 33.7 g/dL (09/05/17 4:14 AM) 33.5 g/dL (09/04/17 4:04 AM) 32.4 g/dL (09/03/17 11:21 AM) MCHC [32.0-36.0 g/dL] 18.4 % *HI* (09/05/17 4:14 AM) 18.9 % *HI* (09/04/17 4:04 AM) 18.8 % *HI* (09/03/17 11:21 AM) RDW [11.5-14.5 %] 10.8 fL *HI* (09/05/17 4:14 AM) 10.6 fL *HI* (09/04/17 4:04 AM) 10.4 fL (09/03/17 11:21 AM) MPV [7.4-10.4 fL] 144 K/CMM (09/05/17 4:14 AM) 154 K/CMM (09/04/17 4:04 AM) 154 K/CMM (09/03/17 11:21 AM) Platelet [133-450 K/CMM] 72.1 % (09/03/17 11:21 AM) Segs [45.0-75.0 %] 8.8 % *LOW* (09/03/17 11:21 AM) Lymphocytes [20.0-40.0 %] 13.4 % *HI* (09/03/17 11:21 AM) Monocytes [2.0-12.0 %] 4.6 % *HI* (09/03/17 11:21 AM) Eosinophils [0.0-4.0 %] 1.1 % *HI* (09/03/17 11:21 AM) Basophils [0.0-1.0 %] 3.7 K/CMM (09/03/17 11:21 AM) Segs-Bands # [1.5-8.1 K/CMM] 0.5 K/CMM *LOW* (09/03/17 11:21 AM) Lymphocytes # [1.0-5.5 K/CMM] 0.7 K/CMM (09/03/17 11:21 AM) Monocytes # [0.0-0.8 K/CMM] 0.2 K/CMM (09/03/17 11:21 AM) Eosinophils # [0.0-0.5 K/CMM] 0.1 K/CMM (09/03/17 11:21 AM) Basophils # [0.0-0.2 K/CMM] 14.9 seconds *HI* (09/03/17 11:21 AM) PT [12.0-14.7 seconds] 1.16 (09/03/17 11:21 AM) INR [0.85-1.17] 31.1 seconds (09/03/17 11:21 AM) PTT [22.9-35.8 seconds] Immunizations Not Given Vaccine [...] 09/03/17 Assessment and Plan Extracted from: Title: [facility] Progress Note * Author: Pola Galan MD Date: 09/05/17 Impression and Plan 1. Acute on chronic systolic heart failure with a last known EF of 30-34%, status post AICD implantation. Continue lasix 40 IV q.8 hours net negative ~2 liters, encouraged patient to ambulate when SOB improves then can be changed to PO lasix 40 mg PO BID, and discharged home later today or tomorrow AM with close outpatient f/u with Dr.. Borges. Continue strict ins and outs, strict ins and outs, fluid daily weights and fluid restrictions. 2. Diabetes type 2, recommend check hemoglobin A1c, monitor glucoses insulin sliding scale. 3. Hypertension. Blood pressure is currently mildly elevated. Increase lisinopril 4. Hyperlipidemia. Check lipid panel. 5. Presence of cardiac defibrillator/AICD [employer] device with generator change recently on 09/05/17. No reported atrial fibrillation episodes keep K greater than 4.0, mag greater than 2.0. From a cardiac standpoint, on discharge and follow up with his primary measurement and sensing technician, Dr. Borges in 2 to 3 weeks. Extracted from: Title: Hospitalist H&P * Author: Jose Rees Date: 09/03/17 MD Impression and Plan Acute on chronic systolic congestive heart failure exacerbation Volume overload secondary to above Respiratory failure with hypoxemia, secondary to above AICD in place Essential hypertension Diabetes medicine type II Chronic kidney disease appears to be stage II Chronic normocytic anemia, without evidence of bleeding Obesity with a BMI of 30 Patient will be admitted for inpatient management with telemetry monitoring Unsure why he did not follow-up with his measurement and sensing technician or passenger car conductor for resumption of Lasix will resume now IV twice daily, consult cardiology Monitor strict I's and O's, heart healthy low-sodium fluid restricted diet Continue oxygen support for hypoxemia Home medications as appropriate and tolerated Insulin sliding scale and Accu-Cheks Avoid nephrotoxic medications Further management pending clinical course and senior health consultant recommendation DVT prophylaxis: Heparin subcu CODE STATUS: Patient is full code Disposition: Inpatient management, anticipate greater than 2 midnight stay for management treatment above
[2018-08-29 13:50] VITALS: BP 119/77
--- NOTE | 2018-08-29 15:41 | Operative Report ---
DATE OF PROCEDURE: 08/29/2018 SURGEON: Shady Huynh MD PROCEDURE: Esophagogastroduodenoscopy with biopsies. INDICATIONS FOR PROCEDURE: Acid reflux. MEDICATION: The patient was done under MAC, please see anesthesiologist's note. PROCEDURE IN DETAIL: With the patient in left lateral decubitus position, flexible fiberoptic Olympus gastroscope was introduced into the esophagus under direct visualization without any difficulty. There was some patchy erythema noted in distal esophagus. The scope was then advanced with ease into the stomach and mucosa overlying the antrum revealed some patchy intense erythema and moderate edema and biopsies were obtained and sent to stain for H pylori and mucosa overlying the body and proximal antrum revealed some atrophic changes and biopsies were obtained to rule out atrophic gastritis. The pylorus was of normal contour and shape, was intubated with ease and the scope was advanced all the way to the second portion of the duodenum. The scope was then withdrawn slowly and biopsies were obtained from the proximal second portion and the duodenal bulb to rule out sprue. A minute nodule was noted also in the bulb that was biopsied. The scope was then withdrawn back into the stomach and retroflexed and mucosa overlying the fundus and cardia grossly appeared to be within normal limits. The scope was then straightened out, it was subsequently withdrawn. The patient tolerated the procedure well. IMPRESSION: 1. Distal esophagitis, mild. 2. Gastritis, antrum, biopsied. Biopsies sent to stain for Helicobacter pylori. 3. Rule out atrophic gastritis, body. 4. Rule out sprue. 5. Duodenal bulb nodule, biopsied. PLAN: Follow up histology. Increase Protonix to 40 mg one p.o. a.c. b.i.d. If bitterness in mouth persists, we would consider starting low dose of Reglan. Shady Huynh MD [facility] [place]/[facility] /[id number] cc: Sen Perez MD
== END | disposition home or self-care (01) ==
LOC: OR 09:04
PROVIDERS: ATTEND Internal Medicine Gastroenterology
DX: K21.9 Gastro-esophageal reflux disease without esophagitis (principal); K29.70 Gastritis, unspecified, without bleeding; K20.9 Esophagitis, unspecified; K31.89 Other diseases of stomach and duodenum; R43.8 Other disturbances of smell and taste; I25.10 Atherosclerotic heart disease of native coronary artery without angina pectoris; J44.9 Chronic obstructive pulmonary disease, unspecified; I50.9 Heart failure, unspecified; E11.22 Type 2 diabetes mellitus with diabetic chronic kidney disease; H35.30 Unspecified macular degeneration; N18.9 Chronic kidney disease, unspecified; G62.9 Polyneuropathy, unspecified; F41.9 Anxiety disorder, unspecified; Z01.810 Encounter for preprocedural cardiovascular examination; Z01.812 Encounter for preprocedural laboratory examination; Z79.4 Long term (current) use of insulin; Z87.01 Personal history of pneumonia (recurrent); Z95.810 Presence of automatic (implantable) cardiac defibrillator; Z80.0 Family history of malignant neoplasm of digestive organs
CPT/HCPCS: 36415 ×2; 43239; 82948; 85025; 88305; 88312; 93005; J0690; J2250; J2704; J2765